=== PATIENT | female | born 1945 | race Caucasian/White ===

== ENCOUNTER 2022-10-17 15:15 | Inpatient (IN) | payer OTHER, MEDICAID ==
[~2022-10-17] VITALS: Ht 162.6 cm; Wt 76.9 kg
[2022-10-17] MEDS ORDERED: NACL 0.9% 1,000 ML IV ONE (15:20)
[2022-10-17 15:21] VITALS: BP 146/74
--- NOTE | 2022-10-17 15:25 | NUR ---
77/F BIBA FROM HOME D/T SZ WITNESSED BY FAMILY. PT HAS A HX BRAIN TUMOR W/ CRANIOTOMY. PT HAND FOCAL SZ X3 TODAY. PT IS NOW POST-ICTAL AFTER 2.5 MG VERSED GIVEN BY EMS EN ROUTE. PER EMS, PT IS ON HOME HOSPICE WITH DNR. AAOX1, PMH: DM, KIDNEY FAILURE, UTERINE CA, BRAIN TUMOR.
--- NOTE | 2022-10-17 15:31 | NUR ---
BLOOD DRAWN BY WAITER/WAITRESS ECONOMY CLASS
[2022-10-17 15:32] LABS: BASOPHILS % (AUTO) 0.3 % (0.0-2.0); HEMOGLOBIN 12.4 g/dL (12.0-16.0); LYMPHOCYTES # (AUTO) 2.6 K/uL (2.5-16.5); LYMPHOCYTES % (AUTO) 16.3 % (20.5-51.1); MONOCYTES # (AUTO) 0.4 K/uL (0.8-1.0); MONOCYTES % (AUTO) 2.4 % (1.7-9.3)
[2022-10-17] MEDS: NACL 0.9% 1,000 ML IV ONE ×2 (15:33→15:41)
[2022-10-17 15:45] LABS: ALBUMIN 2.3 g/dL (3.4-5.0); ANION GAP 31.1 (8-16); ASPARTATE AMINOTRANSFERASE 16 U/L (15-37); CARBON DIOXIDE 16.9 mmol/L (21-32); CHLORIDE 96 mmol/L (98-107); CREATININE 1.4 mg/dL (0.6-1.3); SODIUM SERUM 140 mmol/L (136-145); TOTAL BILIRUBIN 0.5 mg/dL (0.0-1.0); UREA NITROGEN, BLOOD 21 mg/dL (7-18)
[2022-10-17 15:48] LABS: GLUCOSE 477 mg/dL (74-106)
--- NOTE | 2022-10-17 15:57 | NUR ---
PT WENT TO CT
[2022-10-17 16:02] LABS: EOSINOPHILS # (AUTO) 0.1 K/uL (0-0.4); EOSINOPHILS % (AUTO) 0.3 % (0.0-4.0); HEMATOCRIT 39.4 % (36-48); MEAN CORPUSCULAR HEMOGLOBIN 27 pg (27-31); MEAN CORPUSCULAR HGB CONC 31 g/dL (33-37); MEAN CORPUSCULAR VOLUME 86.5 fL (80-94); NEUTROPHILS # (AUTO) 12.8 K/uL (1.8-7.7); NEUTROPHILS % (AUTO) 80.7 % (42.2-75.2); PLATELET COUNT (AUTO) 293 K/uL (140-450); RED BLOOD CELL COUNT(AUTO) 4.55 MIL/uL (4.20-5.40); RED CELL DISTRIBUTION WIDTH 15.9 % (11.6-13.7); WHITE BLOOD COUNT (AUTO) 15.9 K/uL (4.8-10.8)
[2022-10-17] MEDS ORDERED: INSULIN REGULAR, HUMAN 100 UNIT/ML VIAL SUBQ ONE (16:15)
[2022-10-17] MEDS ORDERED: DEXAMETHASONE 10 MG/ML VIAL IVP ONE (16:40)
[2022-10-17] MEDS ORDERED: DEXAMETHASONE 10 MG/ML VIAL ONE (16:43)
--- NOTE | 2022-10-17 16:59 | NUR ---
ATTEMPTED STRAIGHT CATH PER ERMD VERBAL ORDER FOR URINE COLLECTION. UNABLE TO OBTAIN URINE AT THIS TIME. NO URINE DRAINED FROM STRAIGHT CATH. ERMD MADE AWARE.
[2022-10-17] MEDS ORDERED: levETIRAcetam 1,000 MG in NACL 0.9% 100 ML IV ONE (17:30)
[2022-10-17] MEDS ORDERED: PIPERACILLIN/TAZOBACTAM 3.375 GM in DEXTROSE 5% 50 ML IV ONE (17:30)
[2022-10-17] MEDS ORDERED: PIPERACILLIN/TAZOBACTAM 3.375 GM VIAL IV ONE (17:44)
--- NOTE | 2022-10-17 18:14 | NUR ---
RECEIVED CHRISTIANO FROM PHARMACY.
--- NOTE | 2022-10-17 19:30 | NUR ---
ASSUMED CARE OF PT AT THIS TIME. PT IN POSITION OF COMFORT. NO S/S OF DISTRESS NOTED. VSS. AWAITING GAITAN TO DECIDE IF PT WILL BE ADMITTED HERE AT THIS FACILITY OR TRANSFERED. WILL CONTINUE TO MONITOR.
[2022-10-17] MEDS ORDERED: LORazepam 2 MG/ML VIAL IVP PRN (20:50)
--- NOTE | 2022-10-17 21:05 | NUR ---
SPOKE WITH TRIAGE NURSE AT HOSPICE CARE. UPDATED MORE ON PLAN FOR ADMISSION. [phone]
--- NOTE | 2022-10-17 21:15 | NUR ---
BELONGING LIST COMPLETE
--- NOTE | 2022-10-17 21:17 | NUR ---
MED REC COMPLETE
--- NOTE | 2022-10-17 21:20 | NUR ---
PT CLEANED, PT HAS UNSTAGABLE WOUNDS TO COCCYX, RIGHT HIP. AND A POST SURGICAL HEALING WOUND TO HEAD AFTER CRAINIOTOMY IN AUGUST.
[2022-10-17] MEDS ORDERED: guaiFENesin DM 200/20 MG-10 ML 10 ML UDC PO PRN (21:50)
[2022-10-17] MEDS ORDERED: ZOLPIDEM 5 MG TAB PO PRN (21:50)
[2022-10-17] MEDS ORDERED: ACETAMINOPHEN 325 MG TAB PO PRN (21:50)
[2022-10-17] MEDS ORDERED: DOCUSATE SODIUM 100 MG GELCAP PO PRN (21:50)
[2022-10-17] MEDS ORDERED: ONDANSETRON 4 MG/2 ML VIAL IM/IVP PRN (21:50)
[2022-10-17] MEDS ORDERED: PIPERACILLIN/TAZOBACTAM 3.375 GM in DEXTROSE 5% 50 ML IV SCH (21:55)
--- NOTE | 2022-10-17 22:12 | NUR ---
SPOKE TO AFTER HOURS PHARMACIST. SHE GAVE SUGGESTION OF ZOSYN 2.25GM Q 8HR TO START AT 0200. WILL CONTACT ADMITTING DOCTOR.
[2022-10-17 22:18] LABS: PROTHROMBIN TIME 11.1 secs (10.8-13.4)
[2022-10-17 22:19] LABS: CHOL/HDL RATIO 5.8 (1-4.5); FREE T4 (FREE THYROXINE) 1.4 ng/dL (0.76-1.46); MAGNESIUM 1.2 mg/dL (1.8-2.4); PHOSPHORUS 5.2 mg/dL (2.5-4.9); THYROID STIMULATING HORMONE 1.77 uIU/mL (0.34-3.74)
--- NOTE | 2022-10-17 22:34 | NUR ---
Patient will be admitted to care of ROSA ASHLEY. Admited to TELEMETRY. Will go to room 110B. Belongings list completed. Report to LIZ FOURNIER.
--- NOTE | 2022-10-17 22:34 | NUR ---
TEXT DR. CONRAD ABOUT 14.3 LACTIC ACID. NO ORDERS AT THIS TIME.
--- NOTE | 2022-10-17 22:50 | NUR ---
PT WAS RECEIVED IN MAT AT 2245, TRANSPORTED ON A GURNEY FROM THE ER. NOTED PT WAS OBTUNDED, UNABLE TO RESPOND WHEN CALLED BY NAME, WAS ABLE TO WITHDRAW FROM SLIGHT PAIN. PT HAD ON RAC 20G SL, UNSTAGEABLE SACRAL COCCY WOUND, AND SLIGHT SKIN TEAR R HIP. PT CHANGED, MADE COMFORTABLE, VITALS TAKEN WNL, BED IN LOW POSITION, SEIZURE AND FALL PRECAUTIONS IN PLACE.
[2022-10-17] MEDS: DEXT 5% /NACL 0.9% 1,000 ML IV SCH (23:10)
[2022-10-18] MEDS ORDERED: MAG SULF 2000 MG/WATER PREMIX 50 ML IV ONE (03:50)
[2022-10-18 04:22] VITALS: BP 112/70
[2022-10-18] MEDS: DEXT 5% /NACL 0.9% 1,000 ML IV SCH ×4 (04:30→17:59)
[2022-10-18] MEDS ORDERED: PIPERACILLIN/TAZOBACTAM 2.25 GM VIAL IV ONE (05:37)
[2022-10-18] MEDS: PIPERACILLIN/TAZOBACTAM 2.25 GM in DEXTROSE 5% 50 ML IV SCH ×3 (05:48→20:05)
[2022-10-18 07:18] LABS: EOSINOPHILS % (AUTO) 0.1 % (0.0-4.0); HEMATOCRIT 32.1 % (36-48); HEMOGLOBIN 10.4 g/dL (12.0-16.0); LYMPHOCYTES # (AUTO) 1.2 K/uL (2.5-16.5); LYMPHOCYTES % (AUTO) 8.6 % (20.5-51.1); MEAN CORPUSCULAR HEMOGLOBIN 27 pg (27-31); MEAN CORPUSCULAR HGB CONC 32 g/dL (33-37); MEAN CORPUSCULAR VOLUME 83.5 fL (80-94); MONOCYTES # (AUTO) 0.3 K/uL (0.8-1.0); NEUTROPHILS # (AUTO) 12.3 K/uL (1.8-7.7); NEUTROPHILS % (AUTO) 89.3 % (42.2-75.2); PLATELET COUNT (AUTO) 214 K/uL (140-450); RED BLOOD CELL COUNT(AUTO) 3.85 MIL/uL (4.20-5.40); RED CELL DISTRIBUTION WIDTH 15.8 % (11.6-13.7); WHITE BLOOD COUNT (AUTO) 13.8 K/uL (4.8-10.8)
--- NOTE | 2022-10-18 07:33 | NUR ---
GOT REPORT FROM THE NIGHT NURSE, PT NONE VERBAL , NO SOB, IV FLUID IS INFUSING.[id number]
[2022-10-18 08:00] VITALS: BP 150/75
[2022-10-18 08:06] LABS: ANION GAP 16.2 (8-16); CARBON DIOXIDE 23.5 mmol/L (21-32); CHLORIDE 105 mmol/L (98-107); CREATININE 0.7 mg/dL (0.6-1.3); POTASSIUM 3.7 mmol/L (3.5-5.1); SODIUM SERUM 141 mmol/L (136-145); UREA NITROGEN, BLOOD 15 mg/dL (7-18)
[2022-10-18 08:13] LABS: GLUCOSE 420 mg/dL (74-106)
[2022-10-18] MEDS: PANTOPRAZOLE 40 MG TABEC PO SCH (09:24)
[2022-10-18] MEDS: levETIRAcetam 1,000 MG in NACL 0.9% 100 ML IV SCH ×2 (09:24→21:01)
--- NOTE | 2022-10-18 09:50 | NUR ---
WOUND CARE EVALUATION NOTE: SKIN ASSESSMENT DONE WITH THIS 77 Y/O PT ADMITTED WITH INITIAL DX SEIZURES ACTIVITIES. PAST MEDICAL HX INCLUDES HX OF BRAIN TUMOR S/P CRANIOTOMY, DIABETES. PT ADMITTED WITH PRESSURE INJURIES. ALL ABOVE INFORMATION OBTAINED FROM ADMISSION H&P AND CHART REVIEW. PT IS ASLEEP, NOT AROUSABLE WHEN HER NAME IS CALLED OR TOUCHED. PT. SKIN IS WARM AND DRY, BILATERAL LOWER EXTREMITY NO EDEMA. DORSAL PEDAL PULSES PRESENT AND NORMAL. CAPILLARY REFILLED <3 SEC. X 10 TOES. INCONTINENT OF BOWEL AND BLADDER. PLAN OF CARE DISCUSSED WITH PRIMARY RN ДМИТРИЙ. RECOMMENDATIONS DISCUSSED WITH DR. CONRAD. INTEGUMENTARY: -LIPS AND ORAL MUCOSA DRY AND CLEAN. SKIN INTACT. - RIGHT FRONTAL TEMPORAL AND PARTIAL PARIETAL S/P CRANIOTOMY SURGICAL WOUND OLD, HEALED SCARS WITH MULTIPLE STABLE NECROTIC TISSUE AND LARGEST IS 3X3CM IRREGULAR SHAPE -MOISTURE ASSOCIATED SKIN DAMAGE(MASD) TO: B/L GROINS, MEDIAL THIGHS AND PERINEUM. -PRESSURE INJURY UN-STAGEABLE TO SACROCOCCYX 3X5CM, WOUND BED 100% BROWN/WATSON/YELLOW SLOUGH TISSUE, MOIST, MILD ODOR, WOUND EDGE NOT ATTACHED, TASHA-WOUND SKIN MOIST SURROUNDING NON-BLANCHABLE REDNESS INDICATED FURTHER DAMAGE -PRESSURE INJURY STAGE 3 TO RIGHT HIP 1X0.5X0.2CM WOUND BED IS RED 100% GRANULATING TISSUE, MOIST NO ODOR, TASHA WOUND DRYING BLISTERING SKIN WITH NON-BLANCHABLE REDNESS INDICATED FURTHER DAMAGE . RECOMMENDATIONS: -SURGEON CONSULT FOR SACRAL WOUND DEBRIDEMENT -PAINT RIGHT SIDE OF SCALP SURGICAL WOUND WITH BETADINE CHRISTEN. BID AND RISA -APPLY THIN LAYER OF Z GUARD TO R/L GROINS EXTENDED TO PERINEUM BID AND PRN IF SOILING -CLEANSE RIGHT HIP AND SACRAL WOUNDS WITH WOUND CLEANSING SOLUTION, APPLY THERAHONEY GEL TO WOUND BED AND APPLY Z-GUARD TO TASHA-WOUND SKIN, COVER WITH FOAM DRESSING QD AND PRN IF SOILING -POSITIONING: TURN AND REPOSITION PATIENT Q 2H OR SOONER USE PILLOWS TO KEEP BONY PROMINENCES FROM DIRECT CONTACT WITH SURFACES USE REPOSITIONING WEDGES TO PROVIDE 30-DEGREE ANGLE FOR SIDE LYING POSITIONS OFFLOADING OR FOAM DRESSING TO ALL TUBING TO PREVENT MEDICAL DEVICES RELATED PRESSURE INJURY -RE-EVALUATING AND MANAGING INCONTINENCE MONITOR SKIN CONDITION DURING POSITION CHANGE DO NOT MASSAGE REDNESS, BONY PROMINENCES, DO NOT USE DONUT-TYPE DEVICES FREQUENT TASHA-CARE AND PROVIDE BARRIER CREAMS PRN IF SOILING MOISTURE CONTROL BY OFFER BED HENSLEY/URINAL /ABSORBENT PAD TO WICK AND HOLD MOISTURE. KEEP SKIN DRY AND PROTECT FROM FRICTION -MANAGE FRICTION/SHEAR/MOBILITY KEEP HOB AT THE LOWEST LEVEL OF ELEVATION NO MORE THAN 30 DEGREES UNLESS OTHERWISE CONTRAINDICATED USE LIFT SHEET OR TRANSFER DEVICE TO MOVE PATIENT AND PREVENT LATERAL SHEER. CONSIDER TRAPEZE IF APPROPRIATE PROTECT HEELS, ELBOWS BONY PROMINENCES WITH SKIN BERRIES OR FOAM DRESSING IF EXPOSED TO FRICTION OFFLOAD BILATERAL HEELS BY PLACING PILLOWS UNDER CALVES AT ALL TIMES, UNLESS OTHERWISE CONTRAINDICATED -PRESSURE REDISTRIBUTION SURFACE THERAPY ANGÉLICA ISOFLEX ROLANDO MATTRESS -NUTRITION: PLEASE FOLLOW RD RECOMMENDATIONS AND OFFER NUTRITION SUPPLEMENTS IF ORDERED. PLEASE CONTACT WOUND CARE NURSE FOR ANY QUESTION AND CHANGE OF WOUND CONDITION.
--- NOTE | 2022-10-18 10:52 | NUR ---
PATIENT HAS BEEN SCREENED AND CATEGORIZED HIGH NUTRITION RISK. PATIENT WILL BE SEEN WITHIN 1-2 DAYS OF ADMISSION. 10/18/2212/17/[address]
[2022-10-18 12:00] VITALS: BP 144/68
--- NOTE | 2022-10-18 12:00 | NUR ---
STRAIT CATH AND SEND OFF THE URINE TO THE LAB, PT CONTINUE TO SLEEP SLIGHT MOVEMENT OF THE RIGHT ARRM.[id number]
[2022-10-18] MEDS: THERAHONEY GEL 42.5 GM TP SCH (13:00)
[2022-10-18] MEDS: GAUZE TP SCH (13:00)
[2022-10-18] MEDS: Z-GUARD PASTE TP SCH (13:00)
[2022-10-18 14:24] LABS: APPEARANCE,URINE SL CLOUDY (CLEAR); BILIRUBIN,URINE NEGATIVE (NEGATIVE); BLOOD, URINE 1+ (NEGATIVE); COLOR,URINE AMBER (YELLOW); LEUKOCYTE ESTERASE ,URINE 2+ (NEGATIVE); NITRITE, URINE POSITIVE (NEGATIVE); PH,URINE 5.5 (5.0-9.0); UGLUCOSE 3+ (NEGATIVE)
[2022-10-18 14:42] LABS: OTHER CASTS, URINE None Seen /LPF (None Seen)
--- NOTE | 2022-10-18 14:49 | NUR ---
10/18/22 RD INITIAL ASSESSMENT COMPLETED PLEASE REFER TO NUTRITION ASSESSMENT UNDER CARE ACTIVITY FOR ESTIMATED NUTRITIONAL NEEDS. 1. RECOMMEND [id number] MECHANICAL SOFT DIET TOLERATED 2. RECOMMEND GLUCERNA 1XDAY AND HEBER BID PER RX PROTOCOL FOR WOUNDS 3. MONITOR PO INTAKE AND NUTRITION-RELATED LAB VALUES 4. RD TO FOLLOW-UP 3-5 DAYS, MODERATE RISK PIYUSH MARTINEZ RD
--- NOTE | 2022-10-18 15:51 | NUR ---
PT DRESSING DONE AGAIN C\O THE SURGENT TOOK IT OFF. DRESSED WITH HONEY GEL ORDERED IN SACRAL- COCCYGEAL AREA.[email or web address]
[2022-10-18 16:00] VITALS: BP 152/70
--- NOTE | 2022-10-18 16:56 | NUR ---
CONSENT OBTAINED FROM THE SON,JABARI
--- NOTE | 2022-10-18 18:09 | NUR ---
RT ASSESSED PT SPO2 ON ROOM AIR NURSE STATED PT HAS BEEN ON 2L NC ALL DAY WHEN RT ASSESSED PT WAS 96% ON ROOM AFTER 6 MINUTES. WILL CONTINUE TO MONITOR
--- NOTE | 2022-10-18 19:10 | NUR ---
RECEIVED BEDSIDE REPORT FROM DAY SHIFT IRLANDA EDDY FOR CONTINUITY OF CARE. PT IS AROUSABLE TO TOUCH AND VOICE. PT IS WELSH SPEAKER. PT IS AAOX1 TO NAME. PT HAS RIGHT AC 20 GAUGE RUNNING D5 NS 150 CC/HR. PT IS RESTING IN BED WITH NO DISTRESS. PT IS INCONTINENT WITH DIAPER ON. PT HAS BILATERAL HEEL PROTECTORS ON. NO COMPLAINS. SAFETY PRECAUTIONS TAKEN. SEIZURE PRECAUTIONS IN PLACE. WILL CONTINUE TO MONITOR THE PT.
[2022-10-18 20:00] VITALS: BP 126/73
--- NOTE | 2022-10-18 20:05 | NUR ---
SCHEDULE MEDICATIONS GIVEN. NO ADVERSE REACTION NOTED. WILL CONTINUE TO MONITOR THE PT.
--- NOTE | 2022-10-18 21:01 | NUR ---
SCHEDULE KEPPRA GIVEN. NO ADVERSE REACTION NOTED. WILL CONTINUE TO MONITOR THE PT.
[2022-10-18] MEDS ORDERED: DEXTROSE 50% 50 ML SYR IVP PRN (21:55)
[2022-10-19] VITALS: BP 120/45
[2022-10-19] MEDS: DEXT 5% /NACL 0.9% 1,000 ML IV SCH ×4 (00:56→18:44)
--- NOTE | 2022-10-19 00:56 | NUR ---
IVF CHANGED. PT IS SLEEPING COMFORTABLY IN BED. PT NOT IN ANY ACUTE DISTRESS. WILL CONTINUE TO MONITOR THE PT.
[2022-10-19] MEDS: Z-GUARD PASTE TP SCH ×2 (01:10→13:00)
--- NOTE | 2022-10-19 02:20 | NUR ---
OBSERVED PT. PT IS SLEEPING COMFORTABLY IN BED. PT NOT IN ANY ACUTE DISTRESS. VISIBLE RISE AND CHEST FALL. SAFETY PRECAUTIONS TAKEN. WILL CONTINUE TO MONITOR THE PT.
[2022-10-19 04:00] VITALS: BP 126/38
[2022-10-19] MEDS: PIPERACILLIN/TAZOBACTAM 2.25 GM in DEXTROSE 5% 50 ML IV SCH ×3 (04:15→20:21)
--- NOTE | 2022-10-19 04:15 | NUR ---
SCHEDULE MEDICATION GIVEN. NO ADVERSE REACTION NOTED. WILL CONTINUE TO MONITOR THE PT.
[2022-10-19] MEDS: BLOOD GLUCOSE MONITORING 1 DEV DEV FS SCH ×6 (06:30→20:24)
--- NOTE | 2022-10-19 06:31 | NUR ---
PT BLOOD GLUCOSE IS 429. DR. FABIAN MADE AWARE. ORDERED TO GIVE 20 UNITS OF HUMALOG.
[2022-10-19] MEDS: INSULIN LISPRO SLIDING SCALE 100 UNITS/ML VIAL SUBQ PRN ×4 (06:32→20:24)
[2022-10-19 06:42] LABS: ANION GAP 15.5 (8-16); CARBON DIOXIDE 23.9 mmol/L (21-32); CHLORIDE 107 mmol/L (98-107); CREATININE 0.7 mg/dL (0.6-1.3); POTASSIUM 3.4 mmol/L (3.5-5.1); SODIUM SERUM 143 mmol/L (136-145); UREA NITROGEN, BLOOD 13 mg/dL (7-18)
[2022-10-19 06:44] LABS: GLUCOSE 441 mg/dL (74-106)
[2022-10-19 06:57] LABS: BASOPHILS % (AUTO) 0.2 % (0.0-2.0); EOSINOPHILS % (AUTO) 0.1 % (0.0-4.0); HEMATOCRIT 33.7 % (36-48); HEMOGLOBIN 10.6 g/dL (12.0-16.0); LYMPHOCYTES # (AUTO) 1.9 K/uL (2.5-16.5); LYMPHOCYTES % (AUTO) 12.4 % (20.5-51.1); MEAN CORPUSCULAR HEMOGLOBIN 27 pg (27-31); MEAN CORPUSCULAR HGB CONC 32 g/dL (33-37); MEAN CORPUSCULAR VOLUME 85.3 fL (80-94); MONOCYTES # (AUTO) 0.7 K/uL (0.8-1.0); MONOCYTES % (AUTO) 4.5 % (1.7-9.3); NEUTROPHILS # (AUTO) 12.6 K/uL (1.8-7.7); NEUTROPHILS % (AUTO) 82.8 % (42.2-75.2); PLATELET COUNT (AUTO) 170 K/uL (140-450); RED BLOOD CELL COUNT(AUTO) 3.95 MIL/uL (4.20-5.40); RED CELL DISTRIBUTION WIDTH 15.7 % (11.6-13.7); WHITE BLOOD COUNT (AUTO) 15.3 K/uL (4.8-10.8)
--- NOTE | 2022-10-19 07:15 | NUR ---
RECEIVED BEDSIDE REPORT FROM FOOD AND BEVERAGE CONTROLLER MYA RN. PT LETHARGIC. BEDREST. ROOM AIR. [facility] [place] DIET. IV TO RT AC 20G, RUNNING D5 NS @ 150MLS/HR. BEDREST, BED TO LOWEST POSITION, CALL LIGHT WITHIN REACH, WILL CONTINUE TO MONITOR. SEE WOUND ASSESSMENT.
--- NOTE | 2022-10-19 07:35 | NUR ---
ENDORSED PT TO DAY SHIFT RN FOR CONTINUITY OF CARE. PT IS STABLE.
[2022-10-19 08:00] VITALS: BP 134/58
[2022-10-19 08:07] LABS: T4 (THYROXINE) 8.2 ug/dL (4.5-12.0)
[2022-10-19] MEDS: PANTOPRAZOLE 40 MG TABEC PO SCH (09:37)
[2022-10-19] MEDS: levETIRAcetam 1,000 MG in NACL 0.9% 100 ML IV SCH ×2 (09:38→21:21)
[2022-10-19 12:00] VITALS: BP 135/57
[2022-10-19] MEDS: POTASSIUM CHLORIDE 10 MEQ TABER PO PRN (12:03)
[2022-10-19] MEDS ORDERED: diphenhydrAMINE 50 MG/ML VIAL IVP PRN (12:50)
[2022-10-19] MEDS ORDERED: MEPERIDINE 25 MG/ML SYR IVP PRN (12:50)
[2022-10-19] MEDS ORDERED: ONDANSETRON 4 MG/2 ML VIAL IVP PRN (12:50)
[2022-10-19] MEDS ORDERED: HYDROmorphone 1 MG/ML AMP IVP PRN (12:50)
[2022-10-19] MEDS ORDERED: fentaNYL citrate 0.05 MG/ML VIAL ONE (12:59)
[2022-10-19] MEDS ORDERED: PROPOFOL 200 MG/20 ML VIAL IV ONE ×2 (12:59→13:00)
[2022-10-19] MEDS: GAUZE TP SCH (13:00)
[2022-10-19] MEDS ORDERED: SEVOFLURANE 250 ML BTL INH ONE (13:00)
[2022-10-19] MEDS: THERAHONEY GEL 42.5 GM TP SCH (13:00)
[2022-10-19] MEDS ORDERED: fentaNYL citrate 0.05 MG/ML - 50mL vial IV ONE (13:00)
[2022-10-19] MEDS ORDERED: BUPIVACAINE-MPF 0.25% 30 ML VIAL INJ ONE (13:08)
--- NOTE | 2022-10-19 14:36 | NUR ---
PT BACK FROM DEBRIDEMENT. TOLERATED WELL. FAMILY AT BEDSIDE.
[2022-10-19 16:00] VITALS: BP 129/55
--- NOTE | 2022-10-19 16:58 | NUR ---
RECEIVED FAMILY CALL. UPDATED PT INFORMATION.
--- NOTE | 2022-10-19 19:21 | NUR ---
ENDORSED TO CRAFT SUPERINTENDENT RN FOR CONTINUITY OF CARE.
--- NOTE | 2022-10-19 19:25 | NUR ---
RECEIVED BEDSIDE REPORT FROM DAY SHIFT RN FOR CONTINUITY OF CARE. PT IS AROUSABLE TO TOUCH AND VOICE. PT IS [place] SPEAKER. PT IS AAOX1 TO NAME. PT HAS RIGHT AC 20 GAUGE RUNNING NS 150 CC/HR. PT IS RESTING IN BED WITH NO DISTRESS. PT IS INCONTINENT TO BOWEL AND BLADDER. S/P DEBRIDEMENT OF SACRAL AND RIGHT SIDE PARIETAL SCALP. PT HAS BILATERAL HEEL PROTECTORS ON. NO COMPLAINS. SAFETY PRECAUTIONS TAKEN. SEIZURE PRECAUTIONS IN PLACE. WILL CONTINUE TO MONITOR THE PT.
[2022-10-19 20:00] VITALS: BP 155/76
[2022-10-19] MEDS: NACL 0.9% 1,000 ML IV SCH ×2 (20:22→21:10)
--- NOTE | 2022-10-19 21:21 | NUR ---
SCHEDULE MEDICATIONS GIVEN. NO ADVERSE REACTION NOTED. WILL CONTINUE TO MONITOR THE PT.
[2022-10-20] VITALS: BP 153/60
--- NOTE | 2022-10-20 | NUR ---
VITAL SIGNS TAKEN. AND STABLE. PT NO TIN ANY DISTRESS. SAFETY PRECAUTIONS TAKEN. WILL CONTINUE TO MONITOR THE PT.
[2022-10-20] MEDS: Z-GUARD PASTE TP SCH ×2 (01:39→13:06)
--- NOTE | 2022-10-20 02:40 | NUR ---
OBSERVED PT. PT SLEEPING COMFORTABLY IN BED. PT NOT IN ANY RESPIRATORY DISTRESS. SAFETY PRECAUTIONS TAKEN. WILL CONTINUE TO MONITOR THE PT.
[2022-10-20] MEDS: DEXT 5% /NACL 0.9% 1,000 ML IV SCH ×4 (03:10→23:10)
[2022-10-20 04:00] VITALS: BP 150/60
--- NOTE | 2022-10-20 04:50 | NUR ---
PT WAS CLEANED AND CHANGED. TOLERATED IT WELL. SAFETY PRECAUTIONS TAKEN. WILL CONTINUE TO MONITOR THE PT.
[2022-10-20] MEDS: PIPERACILLIN/TAZOBACTAM 2.25 GM in DEXTROSE 5% 50 ML IV SCH ×3 (05:44→20:05)
[2022-10-20] MEDS: NACL 0.9% 1,000 ML IV SCH ×3 (05:44→22:10)
[2022-10-20] MEDS: INSULIN LISPRO SLIDING SCALE 100 UNITS/ML VIAL SUBQ PRN ×3 (06:32→20:21)
[2022-10-20] MEDS: BLOOD GLUCOSE MONITORING 1 DEV DEV FS SCH ×4 (06:33→20:21)
[2022-10-20 07:12] LABS: BASOPHILS % (AUTO) 0.1 % (0.0-2.0); EOSINOPHILS % (AUTO) 0.2 % (0.0-4.0); HEMATOCRIT 31.7 % (36-48); HEMOGLOBIN 10.3 g/dL (12.0-16.0); LYMPHOCYTES # (AUTO) 2.1 K/uL (2.5-16.5); LYMPHOCYTES % (AUTO) 13.4 % (20.5-51.1); MEAN CORPUSCULAR HEMOGLOBIN 27 pg (27-31); MEAN CORPUSCULAR HGB CONC 33 g/dL (33-37); MEAN CORPUSCULAR VOLUME 84.4 fL (80-94); MONOCYTES # (AUTO) 0.7 K/uL (0.8-1.0); MONOCYTES % (AUTO) 4.8 % (1.7-9.3); NEUTROPHILS # (AUTO) 12.6 K/uL (1.8-7.7); NEUTROPHILS % (AUTO) 81.5 % (42.2-75.2); PLATELET COUNT (AUTO) 185 K/uL (140-450); RED BLOOD CELL COUNT(AUTO) 3.76 MIL/uL (4.20-5.40); RED CELL DISTRIBUTION WIDTH 15.8 % (11.6-13.7); WHITE BLOOD COUNT (AUTO) 15.5 K/uL (4.8-10.8)
--- NOTE | 2022-10-20 07:22 | NUR ---
ENDORSED PT TO DAY SHIFT IRLANDA LU FOR CONTINUITY OF CARE. PT IS STABLE.
[2022-10-20 07:45] LABS: CARBON DIOXIDE 21.4 mmol/L (21-32); CHLORIDE 110 mmol/L (98-107); CREATININE 0.8 mg/dL (0.6-1.3); GLUCOSE 250 mg/dL (74-106); POTASSIUM 3.4 mmol/L (3.5-5.1); SODIUM SERUM 146 mmol/L (136-145); UREA NITROGEN, BLOOD 9 mg/dL (7-18)
[2022-10-20 08:00] VITALS: BP 143/71
[2022-10-20] MEDS: levETIRAcetam 1,000 MG in NACL 0.9% 100 ML IV SCH ×2 (09:29→20:43)
[2022-10-20] MEDS: PANTOPRAZOLE 40 MG TABEC PO SCH (09:30)
[2022-10-20] MEDS: POTASSIUM CHLORIDE 10 MEQ TABER PO PRN (09:30)
[2022-10-20 12:00] VITALS: BP 147/68
[2022-10-20] MEDS: GAUZE TP SCH (12:28)
[2022-10-20] MEDS: THERAHONEY GEL 42.5 GM TP SCH (12:28)
[2022-10-20 16:00] VITALS: BP 144/68
--- NOTE | 2022-10-20 19:14 | NUR ---
ENDORSE PATIENT TO PM SHIFT NURSE WHILE PATIENT IS SLEEPING, PIV RAC 20G INFUSING NS @120ML/HR, PATIENT IS ON ROOM AIR, COCCYX WOUND DRESSING CHANGED
--- NOTE | 2022-10-20 19:15 | NUR ---
RECEIVED BEDSIDE REPORT FROM DAY SHIFT RN FOR CONTINUITY OF CARE. PT IS AROUSABLE TO TOUCH AND VOICE. PT IS [place] SPEAKER. PT IS AAOX1 TO NAME. PT HAS RIGHT AC 20 GAUGE RUNNING NS 150 CC/HR. PT IS RESTING IN BED WITH NO DISTRESS. PT IS INCONTINENT TO BOWEL AND BLADDER. S/P DEBRIDEMENT OF SACRAL AND RIGHT SIDE PARIETAL SCALP 10/19/22. PT HAS BILATERAL HEEL PROTECTORS ON. NO COMPLAINS. SAFETY PRECAUTIONS TAKEN. SEIZURE PRECAUTIONS IN PLACE. WILL CONTINUE TO MONITOR THE PT.
[2022-10-20 20:00] VITALS: BP 146/69
--- NOTE | 2022-10-20 20:45 | NUR ---
SCHEDULE MEDICATIONS GIVEN. NO ADVERSE REACTION NOTED. WILL CONTINUE TO MONITOR THE PT.
[2022-10-21] VITALS: BP 167/62
[2022-10-21] MEDS: hydrALAZINE 20 MG/ML VIAL IVP PRN (00:50)
--- NOTE | 2022-10-21 00:53 | NUR ---
PT BP WAS HIGH 167/62 WITH HR OF 106. HYDRALAZINE GIVEN PER MD ORDER. WILL REASSESS PT IN 1 HOUR.
[2022-10-21] MEDS: Z-GUARD PASTE TP SCH ×2 (01:08→12:41)
--- NOTE | 2022-10-21 02:35 | NUR ---
OBSERVED PT. PT SLEEPING COMFORTABLY IN BED. PT NOT IN ANY RESPIRATORY DISTRESS. SAFETY PRECAUTIONS TAKEN. WILL CONTINUE TO MONITOR THE PT.
[2022-10-21] MEDS: NACL 0.9% 1,000 ML IV SCH (03:15)
[2022-10-21 04:00] VITALS: BP 154/77
[2022-10-21] MEDS: PIPERACILLIN/TAZOBACTAM 2.25 GM in DEXTROSE 5% 50 ML IV SCH ×2 (04:05→12:38)
--- NOTE | 2022-10-21 04:50 | NUR ---
PT WAS CLEANED AND CHANGED. PT TOLERATED IT WELL. DRESSING CHANGED. WILL CONTINUE TO MONITOR THE PT.
[2022-10-21] MEDS: DEXT 5% /NACL 0.9% 1,000 ML IV SCH (05:50)
[2022-10-21 07:20] LABS: ANION GAP 17.2 (8-16); CARBON DIOXIDE 16.7 mmol/L (21-32); CHLORIDE 110 mmol/L (98-107); CREATININE 0.8 mg/dL (0.6-1.3); GLUCOSE 288 mg/dL (74-106); POTASSIUM 3.9 mmol/L (3.5-5.1); SODIUM SERUM 140 mmol/L (136-145); UREA NITROGEN, BLOOD 8 mg/dL (7-18)
--- NOTE | 2022-10-21 07:21 | NUR ---
ENDORSED PT TO DAY SHIFT IRLANDA LU FOR CONTINUITY OF CARE. PT IS STABLE.
[2022-10-21 07:22] LABS: BASOPHILS % (AUTO) 0.1 % (0.0-2.0); EOSINOPHILS % (AUTO) 0.2 % (0.0-4.0); HEMATOCRIT 30.1 % (36-48); HEMOGLOBIN 9.8 g/dL (12.0-16.0); LYMPHOCYTES # (AUTO) 1.9 K/uL (2.5-16.5); LYMPHOCYTES % (AUTO) 12.4 % (20.5-51.1); MEAN CORPUSCULAR HEMOGLOBIN 27 pg (27-31); MEAN CORPUSCULAR HGB CONC 33 g/dL (33-37); MEAN CORPUSCULAR VOLUME 83.4 fL (80-94); MONOCYTES # (AUTO) 0.6 K/uL (0.8-1.0); MONOCYTES % (AUTO) 3.9 % (1.7-9.3); NEUTROPHILS # (AUTO) 12.9 K/uL (1.8-7.7); NEUTROPHILS % (AUTO) 83.4 % (42.2-75.2); PLATELET COUNT (AUTO) 210 K/uL (140-450); RED BLOOD CELL COUNT(AUTO) 3.61 MIL/uL (4.20-5.40); RED CELL DISTRIBUTION WIDTH 16.2 % (11.6-13.7); WHITE BLOOD COUNT (AUTO) 15.4 K/uL (4.8-10.8)
[2022-10-21 08:00] VITALS: BP 115/51
--- NOTE | 2022-10-21 08:09 | NUR ---
DC PLANNING LATE ENTRY, JOSIAH INFO GATHERED 10/18 AT 1PM SW OUTREACHED TO PTS SON, ZEV SIMMONS, TO GATHER COLLATERAL INFORMATION. PT IS REPORTED TO RESIDE IN A SINGLE STORY HOME WITH HER SON AND FAMILY, AT THE ADDRESS LISTED ON FILE. ZEV IDENTIFIES HIMSELF, AND FERNANDA SIMMONS, SON, EMERGENCY CONTACTS. ZEV DENIES KNOWLEDGE OF DPOA AND REPORTS THAT IN THE EVENT PT IS UNABLE TO MAKE DECISIONS ON HER OWN FAMILY WOULD COME TOGETHER PTS MDM. ZEV REPORTS PTS LAST VISIT WITH PCP, AUG 24. PT IS REPORTED TO COMPLIANT WITH MEDICATIONS. ZEV REPORTS MEDICATIONS ARE TYPICALLY CRUSHED AND PROVIDED TO PT UTILIZING YOGURT/APPLESAUCE. PTS MEDICATIONS ARE REPORTED TO BE SHIPPED TO THE HOME. PT IS PRIMARILY BED BOUND AND REQUIRES TOTAL CARE THAT FAMILY AIDS WITH. PT IS REPORTED TO BE VERBAL AT BASELINE AND IS ABLE TO MAKE NEEDS KNOWN. ZEV REPORTS PT IS IN ON HOSPICE CARE WITH [facility], SINCE SEP 24. ZEV REPORTS DC PLAN IS FOR PT TO RETURN HOME ON HOSPICE. ZEV REPORTS HE IS UNHAPPY WITH CURRENT HOSPICE PROVIDER AND IS LOOKING TO POSSIBLY CHANGE PROVIDERS. Addendum: 10/21/22 at 0812 by Claire LOWRY Amended: Links added.
[2022-10-21] MEDS: BLOOD GLUCOSE MONITORING 1 DEV DEV FS SCH ×4 (08:21→21:36)
[2022-10-21] MEDS: INSULIN LISPRO SLIDING SCALE 100 UNITS/ML VIAL SUBQ PRN ×3 (08:32→21:48)
[2022-10-21] MEDS: PANTOPRAZOLE 40 MG TABEC PO SCH (10:17)
[2022-10-21] MEDS: levETIRAcetam 1,000 MG in NACL 0.9% 100 ML IV SCH (10:19)
[2022-10-21] MEDS: GAUZE TP SCH (12:39)
[2022-10-21] MEDS: THERAHONEY GEL 42.5 GM TP SCH (12:40)
[2022-10-21] MEDS: HYDROcodone/APAP 7.5/325 MG 1 TAB PO PRN (15:14)
[2022-10-21 16:00] VITALS: BP 138/63
--- NOTE | 2022-10-21 19:29 | NUR ---
ENDORSE PATIENT TO PM SHIFT NURSE WHILE PATIENT IS SLEEPING, PIV RAC 20G INFUSING NS @120ML/HR, PATIENT IS ON ROOM AIR, MED/SURG, COCCYX WOUND & R. HIP SITE DRESSING CHANGED
--- NOTE | 2022-10-21 19:30 | NUR ---
RECEIVED ENDORSEMENT FROM ALY FOURNIER, PATIENT WAS STABLE DURING SHIFT REPORT. PATIENT ASLEEP WITH NOTED DRESSING TO HEAD. NO ORDERS ON HOW TO CHANGE WILL INFORM MD FOR POSSIBLE ORDERS. IT WAS REPORTED PATIENT IS NON VERBAL. NO NOTED RESPIRATORY DISTRESS. NO NOTED S/S OF PAIN/DISCOMFORT. SIDE RAILS UP X 4 FOR SAFETY. NURSING WILL FREQUENT THIS ROOM FOR ANTICIPATED NEEDS. CALL LIGHT WITHIN REACH. PATIENT IS UNAWARE OF HER NURSE FOR THE EVENING. [email or web address]
--- NOTE | 2022-10-21 22:57 | NUR ---
PATIENT REMAINS IN BED WITH WARM BLANKET. PATIENT WOKE UP FOR EVENING MEDICATION PASS. NO NOTED PAIN/DISCOMFORT. PATIENT WAS GIVEN INSULIN COVERAGE. PATIENT REFUSES TO EAT. NURSING WILL CONTINUE TO MONITOR OF S/S OF HYPER/HYPOGLYCEMIA. [email or web address]
[2022-10-22] MEDS: Z-GUARD PASTE TP SCH ×2 (01:36→13:00)
[2022-10-22] MEDS: levETIRAcetam 1,000 MG in NACL 0.9% 100 ML IV SCH ×3 (02:12→20:05)
[2022-10-22] MEDS: PIPERACILLIN/TAZOBACTAM 2.25 GM in DEXTROSE 5% 50 ML IV SCH ×4 (02:14→20:05)
--- NOTE | 2022-10-22 02:24 | NUR ---
PATIENT NOTED IN BED ASLEEP. NURSING NOTED PATIENT IS MAKING FACIAL GESTURE WHILE SLEEPING. NURSING WILL INFORM AM SHIFT OF THE FINDING. NO NOTED INCIDENT AT THIS TIME. [email or web address]
[2022-10-22 04:00] VITALS: BP 165/53
--- NOTE | 2022-10-22 05:43 | NUR ---
IT WILL BE ENDORSED TO DAY SHIFT, THAT PATIENT HAS A SKIN TEAR FROM TAPE ON HER RIGHT FORE ARM. DRESSING WAS APPLIED. PICTURE TAKEN IN THE CHART. [email or web address]
--- NOTE | 2022-10-22 06:20 | NUR ---
IV LINE IS OUT MULTIPLE ATTEMPTS TO REINSERT BUT TO NO AVAIL. WAS NOTIFIED OF NO IV ACCESS AND ELEVATED BLOOD SUGAR WITH NORMAL SALINE HER ONLY MEANS FOR HYDRATION. [email or web address]
[2022-10-22] MEDS: BLOOD GLUCOSE MONITORING 1 DEV DEV FS SCH ×4 (06:43→20:05)
[2022-10-22] MEDS: INSULIN LISPRO SLIDING SCALE 100 UNITS/ML VIAL SUBQ PRN ×3 (06:45→20:04)
--- NOTE | 2022-10-22 06:55 | NUR ---
ENDORSED PATIENT TO WILBERT RN, PATIENT WAS STABLE DURING SHIFT REPORT. ENDORSED TO NURSE WANTS IV REINSERTED AND RESUME MEDICATION THERAPY AND SKIN TEAR FROM MEDICAL TAPE. [email or web address]
--- NOTE | 2022-10-22 07:10 | NUR ---
RECEIVED PT FROM NIGHT RN, PT IS ASLEEP AND LYING ON THE BED WITH SIDE RAILS UP AND CALL LIGHT WITHIN REACH, PT IS ON SEIZURE PRECAUTION, ON ROOM AIR, VISIBLE CHEST RISE AND FALL, RESPIRATION IS EVEN , NO IV LINE IN PLACE DUE TO BEING A HARD STICK, BILATERAL UPPER EXTREMITIES EDEMATOUS AND BRUISING NOTED, NO SIGN OF DISTRESS NOTED AND WILL CONTINUE TO MONITOR PT.
[2022-10-22 07:24] LABS: BASOPHILS % (AUTO) 0.3 % (0.0-2.0); EOSINOPHILS # (AUTO) 0.2 K/uL (0-0.4); EOSINOPHILS % (AUTO) 1.1 % (0.0-4.0); HEMOGLOBIN 10.2 g/dL (12.0-16.0); LYMPHOCYTES # (AUTO) 2.7 K/uL (2.5-16.5); LYMPHOCYTES % (AUTO) 18.6 % (20.5-51.1); MEAN CORPUSCULAR HEMOGLOBIN 28 pg (27-31); MEAN CORPUSCULAR HGB CONC 33 g/dL (33-37); MEAN CORPUSCULAR VOLUME 84.3 fL (80-94); MONOCYTES # (AUTO) 0.7 K/uL (0.8-1.0); NEUTROPHILS # (AUTO) 10.7 K/uL (1.8-7.7); PLATELET COUNT (AUTO) 217 K/uL (140-450); RED BLOOD CELL COUNT(AUTO) 3.68 MIL/uL (4.20-5.40); RED CELL DISTRIBUTION WIDTH 16.6 % (11.6-13.7); WHITE BLOOD COUNT (AUTO) 14.3 K/uL (4.8-10.8)
[2022-10-22 08:00] VITALS: BP 146/71
[2022-10-22 08:20] LABS: ANION GAP 17.3 (8-16); CHLORIDE 111 mmol/L (98-107); CREATININE 0.8 mg/dL (0.6-1.3); GLUCOSE 227 mg/dL (74-106); POTASSIUM 3.3 mmol/L (3.5-5.1); SODIUM SERUM 146 mmol/L (136-145); UREA NITROGEN, BLOOD 14 mg/dL (7-18)
[2022-10-22] MEDS: PANTOPRAZOLE 40 MG TABEC PO SCH (09:00)
--- NOTE | 2022-10-22 10:15 | NUR ---
DR. CONRAD WAS NOTIFIED THAT PT IS A HARD STICK AND CANNOT INSERT AN IV, ASK MD IF A MIDLINE CAN BE INSERTED BUT DR. CONRAD SAID THAT PT WILL BE DISCHARGE TO HOME WITH HOSPICE AND IF AN IV CANNOT BE INSERTED THEN JUST LEAVE IT
--- NOTE | 2022-10-22 11:02 | NUR ---
LAWNMOWER REPAIR MECHANIC TRIED SEVERAL TIMES TO RE-INSERT AND IV LINE BUT WAS UNSUCCESSFUL, PT IS A VERY HARD STICK.
--- NOTE | 2022-10-22 11:17 | NUR ---
SCHEDULED AM IV AND ORAL MEDICATIONS ARE NOT GIVEN YET DUE TOP PT IS A HARD STICK, NO IV LINE AND UNABLE TO TOLERATE PO INTAKE
[2022-10-22] MEDS ORDERED: ROC2I IJ (11:46)
[2022-10-22] MEDS ORDERED: LEVE1000 PO (11:46)
[2022-10-22] MEDS: THERAHONEY GEL 42.5 GM TP SCH (13:00)
[2022-10-22] MEDS: GAUZE TP SCH (13:00)
[2022-10-22 16:00] VITALS: BP 153/68
--- NOTE | 2022-10-22 16:00 | NUR ---
PT WAS CLEANED AND REPOSITIONED NOW.
--- NOTE | 2022-10-22 16:43 | NUR ---
DC PLANNING: CALLED [facility] SPOKE WITH CASE 911 OPERATOR JULISSA STATED PT CAN USE ANY HOSPICE. PATIENT WAS WITH [facility] PRIOR TO HOSPITAL ADMISSION AND PER SON LATHA AGREED TO CONTINUE WITH HOSPICE. [facility]CE THEY DIS[facility]GE PATIENT THEY HAVE TO COME AND EVALUATE PATIENT. CM TO FOLLOW Addendum: 10/24/22 at 1612 by Julianna Gill RN DC PLANNING: CALLED [facility] SPOKE WITH LIZZETH STATED SOME ONE WILL CALL US BACK. NO ONE CALLED BACK FROM [facility]. RECEIVED A CALL FROM PT'S SON SPOKE WITH LATHA STATED HE REVOKED THE HOSPICE AND FAMILY REQUESTING EVERYTHING TO BE CONTINUED. NOTIFIED DR CONRAD. CM TO FOLLOW Addendum: 10/25/22 at 1227 by Julianna Gill RN DC PLANNING: [facility] SPOKE WITH VIJAYA CASE 911 OPERATOR, UPDATED PT'S CLINICAL AND FAXED STABLE FOR TRANSFER. CM TO FOLLOW Addendum: 10/30/22 at 1315 by Julianna Gill RN DC PLANNING: RECEIVED A CALL FROM [facility] CASE 911 OPERATOR UPDATED HER PT CLINICAL. STATED WILL WORK ON IT AND CALL BACK. CM TO FOLLOW Addendum: 10/30/22 at 1422 by Gloria Hanley CM RECEIVED A CALL FROM LONG FROM [facility] [phone], PATIENT 911 OPERATOR, REQUESTING TO CALL THE SON IF WHICH [facility] THEY PREFER [facility] OR [facility]. CONTACTED PATIENT'S SON ZEV SIMMONS AT [phone]. VERONICA BROTHERS HE PREFERS [facility]. [facility] OF [facility] MADE AWARE. PER LONG, HE WILL REQUEST BED AT [facility]. Addendum: 10/30/22 at 1742 by Gloria Hanley RECEIVED A CALL FROM PATIENT'S SON ZEV SIMMONS, REQUESTING HOSPICE INFORMATION. PER ZEV, HE DOES NOT WANT TO CONTINUE WITH [facility] ANYMORE. INFORMED ZEV THAT THIS CM WILL REACH OUT TO [facility] FIRST SINCE [facility] HAS THEIR OWN HOSPICE COMPANY. ZEV ABLE TO VERBALIZE UNDERSTANDING. PER LONG OF [facility], SINCE THIS PATIENT IS CARVED OUT TO MEDICARE REFERRAL CAN BE SEND TO ANY HOSPICE AGENCY THAT CAN ACCEPT MEDICARE. RECEIVED A CALL FROM CARMELITA, ASKING INFO ABOUT THE PATIENT. INFORMED JESSIKA, THAT SHE CAN CONTACT THE PATIENT'S SON FOR MORE INFORMATION. PATIENT'S SON ZEV INFORMED WHAT [facility] TOLD THIS CM. THIS CM ASK ZEV IF HE HAS ANY PREFERENCE FOR HOSPICE. ZEV STATED THAT HE WANTS SNF WITH HOSPICE., [place], [facility]. INFORMED ZEV THAT THIS DYNAMIC BALANCER WILL SEND REFERRAL TO HOSPICE AGENCIES AND THEY WILL BE CALLING HIM TO PROVIDE MORE INFORMATION REGARDING HOSPICE SERVICES THEY OFFER. ZEV AGREED AND ABLE TO VERBALIZED UNDERSTANDING. REFERRAL SEND TO [facility]. WILL FOLLOW UP.
--- NOTE | 2022-10-22 19:15 | NUR ---
RECEIVED PT IN BED WITH EYES OPEN. NO S/SX OF PAIN NOR DISCOMFORT. NO RESPIRATORY DISTRESS NOTED. SKIN WARM AND DRY TO TOUCH. NO IV ACCESS, MD AWARE ENDORSED. SAFETY PRECAUTION IN PLACE, CALL LIGHT IN REACH.
--- NOTE | 2022-10-22 19:15 | NUR ---
ENDORSED PT TO NIGHT RN FOR CONTINUITY OF CARE, PT IS STABLE AT THIS TIME.
[2022-10-22 20:00] VITALS: BP 135/57
--- NOTE | 2022-10-22 22:00 | NUR ---
INCONTINENT OF URINE, PERINEAL CARE RENDERED. REPOSITIONED FOR COMFORT. HEAD OF THE BED ELEVATED. CALL LIGHT IN REACH.
--- NOTE | 2022-10-23 00:05 | NUR ---
PATIENT IS ASLEEP. NO S/SX OF PAIN NOR DISCOMFORT. CALL LIGHT IN REACH.
[2022-10-23] MEDS: Z-GUARD PASTE TP SCH ×2 (00:37→13:00)
[2022-10-23 04:00] VITALS: BP 155/60
[2022-10-23] MEDS: PIPERACILLIN/TAZOBACTAM 2.25 GM in DEXTROSE 5% 50 ML IV SCH ×3 (04:08→21:00)
--- NOTE | 2022-10-23 04:50 | NUR ---
PATIENT HAD A BOWEL MOVEMENT, AM CARE RENDERED. MADE COMFORTABLE IN BED.
[2022-10-23] MEDS: BLOOD GLUCOSE MONITORING 1 DEV DEV FS SCH ×4 (06:31→21:00)
--- NOTE | 2022-10-23 06:31 | NUR ---
PATIENT IS ASLEEP. NO DISTRESS NOTED. ALL NEEDS ATTENDED TO. SAFETY PRECAUTIONS MAINTAINED DURING THE SHIFT, CALL LIGHT REMAINED WITHIN REACH.
[2022-10-23] MEDS: INSULIN LISPRO SLIDING SCALE 100 UNITS/ML VIAL SUBQ PRN ×3 (06:32→16:50)
--- NOTE | 2022-10-23 07:17 | NUR ---
ENDORSED CARE TO AM NURSE FOR CONTGINUITY OF CARE. PT ASLEEP. NO DISTRESS.
[2022-10-23 08:00] VITALS: BP 146/64
[2022-10-23 08:10] LABS: ANION GAP 16.2 (8-16); BASOPHILS % (AUTO) 0.3 % (0.0-2.0); CARBON DIOXIDE 23.6 mmol/L (21-32); CHLORIDE 106 mmol/L (98-107); CREATININE 0.7 mg/dL (0.6-1.3); EOSINOPHILS # (AUTO) 0.1 K/uL (0-0.4); EOSINOPHILS % (AUTO) 0.9 % (0.0-4.0); GLUCOSE 224 mg/dL (74-106); HEMATOCRIT 31.2 % (36-48); HEMOGLOBIN 10.1 g/dL (12.0-16.0); LYMPHOCYTES # (AUTO) 1.7 K/uL (2.5-16.5); LYMPHOCYTES % (AUTO) 15.4 % (20.5-51.1); MEAN CORPUSCULAR HEMOGLOBIN 27 pg (27-31); MEAN CORPUSCULAR HGB CONC 32 g/dL (33-37); MEAN CORPUSCULAR VOLUME 84.4 fL (80-94); MONOCYTES # (AUTO) 0.5 K/uL (0.8-1.0); MONOCYTES % (AUTO) 4.9 % (1.7-9.3); NEUTROPHILS # (AUTO) 8.7 K/uL (1.8-7.7); NEUTROPHILS % (AUTO) 78.5 % (42.2-75.2); PLATELET COUNT (AUTO) 196 K/uL (140-450); RED CELL DISTRIBUTION WIDTH 16.6 % (11.6-13.7); SODIUM SERUM 143 mmol/L (136-145); UREA NITROGEN, BLOOD 11 mg/dL (7-18); WHITE BLOOD COUNT (AUTO) 11.1 K/uL (4.8-10.8)
[2022-10-23 08:17] LABS: POTASSIUM 2.8 mmol/L (3.5-5.1)
[2022-10-23] MEDS: levETIRAcetam 1,000 MG in NACL 0.9% 100 ML IV SCH ×2 (09:00→21:00)
[2022-10-23] MEDS: POTASSIUM CHLORIDE 10 MEQ TABER PO PRN (10:02)
[2022-10-23] MEDS: PANTOPRAZOLE 40 MG TABEC PO SCH (10:02)
--- NOTE | 2022-10-23 10:29 | NUR ---
WOUND CARE RE-EVALUATION NOTE: S/P DEBRIDEMENT DONE BY DR. MUNSON TO RIGHT SCALP AND SACRALCOCCYX. MASD IMPROVING, RIGHT HIP NO CHANGE OF CONDITION. PENDING DISCUSSION OF HOSPICE CARE. - RIGHT FRONTAL TEMPORAL AND PARTIAL PARIETAL S/P CRANIOTOMY SURGICAL WOUNDS MULTIPLE STABLE NECROTIC TISSUE WAS REMOVED AND LARGEST IS 3X3X0.1CM IRREGULAR SHAPE, MOIST, NO ODOR, TASHA-WOUND SKIN HEALED SCARS AND INTACT. -MOISTURE ASSOCIATED SKIN DAMAGE(MASD) TO: B/L GROINS, MEDIAL THIGHS AND PERINEUM REDNESS AREA IMPROVING -PRESSURE INJURY UN-STAGEABLE TO SACROCOCCYX 3X5.5CM, WOUND BED 100% YELLOW SLOUGH TISSUE, MOIST, MILD ODOR, WOUND EDGE NOT ATTACHED, TASHA-WOUND SKIN MOIST SURROUNDING NON-BLANCHABLE REDNESS INDICATED FURTHER DAMAGE -PRESSURE INJURY STAGE 3 TO RIGHT HIP 1X0.5X0.2CM WOUND BED IS RED 100% GRANULATING TISSUE, MOIST NO ODOR, TASHA WOUND DRYING BLISTERING SKIN WITH NON-BLANCHABLE REDNESS INDICATED FURTHER DAMAGE .
[2022-10-23] MEDS: THERAHONEY GEL 42.5 GM TP SCH (13:00)
[2022-10-23] MEDS: GAUZE TP SCH (13:00)
--- NOTE | 2022-10-23 14:29 | NUR ---
[facility] ADMISSION NURSE, JESSIKA Lerner IS HERE TO RE-ADMIT PATIENT TO HOSPICE. PATIENT'S NEXT KIN IS HERE AT BEDSIDE. NURSE CHANGE PATIENT'S WOUND DRESSING AND CLEANED PATIENT. PATIENT TOLERATE PROCEDURE. WILLL CONTINUE TO MONITOR. Addendum: 10/23/22 at 1519 by Miriam Cruz RN PER [facility] PERSONAL, [facility] WILL ARRANGE A FACILITY TO CARRY ON HOSPICE CARE. AT THIS POINT TIME, PATIENT WILL STAY IN HOSPITAL UNTIL FNS FINALIZE
--- NOTE | 2022-10-23 15:58 | NUR ---
10/23/22 RD FOLLOW UP COMPLETED PLEASE REFER TO NUTRITION ASSESSMENT UNDER CARE ACTIVITY FOR ESTIMATED NUTRITIONAL NEEDS. 1. CONTINUE [id number] MECHANICAL SOFT DIET WITH GLUCERNA 1XDAY AND HEBER BID TOLERATED 2. CONSIDER NUTRITION SUPPORT IF PO INTAKE DOES NOT IMPROVE 3. MONITOR PO INTAKE AND NUTRITION-RELATED LAB VALUES 4. RD TO FOLLOW-UP 3-5 DAYS, MODERATE RISK REVIEWED BY PIYUSH MARTINEZ RD
[2022-10-23 16:00] VITALS: BP 147/65
[2022-10-23] MEDS: HYDROcodone/APAP 7.5/325 MG 1 TAB PO PRN (18:25)
--- NOTE | 2022-10-23 19:23 | NUR ---
GIVING ENDORSEMENT TO PM SHIFT NURSE WHILE PATIENT REST IN BED, VISITOR AT BEDSIDE. [facility] RE-ADMIT PATIENT AND CURRENT ACTIVELY LOOKING FOR SNF FOR PATIENT TO SPEND HER REMAIN TIME.
--- NOTE | 2022-10-23 19:30 | NUR ---
RECEIVED PT from DAY RN FOR CONTINUITY OF CARE. PT IN BED WITH EYES OPEN.PT'S NIECE AT BEDSIDE. NO S/SX OF PAIN OR RESPIRATORY DISTRESS NOTED. SKIN WARM AND DRY TO TOUCH. NO IV ACCESS, MD AWARE ENDORSED. SAFETY PRECAUTION IN PLACE, CALL LIGHT IN REACH. WILL CONTINUE TO MONITOR.
--- NOTE | 2022-10-23 22:00 | NUR ---
IV ON R FOOT G [address] FLUSHING WELL. SCHEDULED KEPPRA STARTED. BLOOD GLUCOSE 155.WILL CONTINUE TO MONITOR.
[2022-10-24] MEDS: Z-GUARD PASTE TP SCH ×2 (01:43→13:00)
--- NOTE | 2022-10-24 02:21 | NUR ---
PATIENT IS ASLEEP. NO DISTRESS NOTED. ALL NEEDS ATTENDED TO. SAFETY PRECAUTIONS MAINTAINED DURING THE SHIFT, CALL LIGHT REMAINED WITHIN REACH.
[2022-10-24 04:00] VITALS: BP 142/60
[2022-10-24] MEDS: PIPERACILLIN/TAZOBACTAM 2.25 GM in DEXTROSE 5% 50 ML IV SCH ×3 (05:34→21:07)
[2022-10-24] MEDS: BLOOD GLUCOSE MONITORING 1 DEV DEV FS SCH ×4 (06:22→21:06)
[2022-10-24] MEDS: INSULIN LISPRO SLIDING SCALE 100 UNITS/ML VIAL SUBQ PRN ×2 (06:23→21:08)
--- NOTE | 2022-10-24 06:36 | NUR ---
PT IS STABLE. NO ACUTE EVENTS THROUGHOUT THE NIGHT. ALL NEEDS ATTENDED. NO S/SX OF DISTRESS OF THE MOMENT.ALL PRECAUTIONS IN PLACE. CALL LIGHT WITHIN REACH. WILL ENDORSE TO AM SHIFT NURSE.
[2022-10-24 07:29] LABS: ANION GAP 13.4 (8-16); CARBON DIOXIDE 20.3 mmol/L (21-32); CHLORIDE 105 mmol/L (98-107); CREATININE 0.6 mg/dL (0.6-1.3); GLUCOSE 233 mg/dL (74-106); SODIUM SERUM 136 mmol/L (136-145); UREA NITROGEN, BLOOD 9 mg/dL (7-18)
[2022-10-24 07:38] LABS: POTASSIUM 2.7 mmol/L (3.5-5.1)
[2022-10-24 07:44] LABS: BASOPHILS % (AUTO) 0.2 % (0.0-2.0); EOSINOPHILS # (AUTO) 0.1 K/uL (0-0.4); EOSINOPHILS % (AUTO) 0.9 % (0.0-4.0); HEMATOCRIT 28.4 % (36-48); HEMOGLOBIN 9.4 g/dL (12.0-16.0); LYMPHOCYTES # (AUTO) 1.3 K/uL (2.5-16.5); LYMPHOCYTES % (AUTO) 12.7 % (20.5-51.1); MEAN CORPUSCULAR HEMOGLOBIN 28 pg (27-31); MEAN CORPUSCULAR HGB CONC 33 g/dL (33-37); MEAN CORPUSCULAR VOLUME 83.7 fL (80-94); MONOCYTES # (AUTO) 0.6 K/uL (0.8-1.0); MONOCYTES % (AUTO) 5.8 % (1.7-9.3); NEUTROPHILS # (AUTO) 8.4 K/uL (1.8-7.7); NEUTROPHILS % (AUTO) 80.4 % (42.2-75.2); PLATELET COUNT (AUTO) 181 K/uL (140-450); RED BLOOD CELL COUNT(AUTO) 3.39 MIL/uL (4.20-5.40); RED CELL DISTRIBUTION WIDTH 16.7 % (11.6-13.7); WHITE BLOOD COUNT (AUTO) 10.4 K/uL (4.8-10.8)
[2022-10-24] MEDS: PANTOPRAZOLE 40 MG TABEC PO SCH (09:00)
[2022-10-24] MEDS: levETIRAcetam 1,000 MG in NACL 0.9% 100 ML IV SCH ×2 (09:00→20:03)
[2022-10-24] MEDS: GAUZE TP SCH (13:00)
[2022-10-24] MEDS: THERAHONEY GEL 42.5 GM TP SCH (13:00)
[2022-10-24] MEDS ORDERED: KCL 20 MEQ/WATER INJ PREMIX 200 ML IV SCH (13:30)
--- NOTE | 2022-10-24 19:30 | NUR ---
RECEIVED PT from DAY RN FOR CONTINUITY OF CARE. PT IN BED WITH EYES OPEN.NO S/SX OF PAIN OR RESPIRATORY DISTRESS NOTED.IV ON R FOOT G24, SL. SKIN WARM AND DRY TO TOUCH. ALL SAFETY PRECAUTION IN PLACE, CALL LIGHT IN REACH. WILL CONTINUE TO MONITOR.
--- NOTE | 2022-10-24 21:30 | NUR ---
SCHEDULE MEDICATIONS GIVEN. NO ADVERSE REACTION NOTED. WILL CONTINUE TO MONITOR THE PT.
[2022-10-25] VITALS: BP 159/102
--- NOTE | 2022-10-25 00:25 | NUR ---
PATIENT IS ASLEEP. NO DISTRESS NOTED. ALL NEEDS ATTENDED TO. SAFETY PRECAUTIONS MAINTAINED DURING THE SHIFT, CALL LIGHT REMAINED WITHIN REACH.
[2022-10-25] MEDS: Z-GUARD PASTE TP SCH ×2 (01:06→13:00)
[2022-10-25] MEDS: PIPERACILLIN/TAZOBACTAM 2.25 GM in DEXTROSE 5% 50 ML IV SCH ×3 (05:59→20:27)
[2022-10-25] MEDS: BLOOD GLUCOSE MONITORING 1 DEV DEV FS SCH ×4 (06:44→21:18)
[2022-10-25] MEDS: INSULIN LISPRO SLIDING SCALE 100 UNITS/ML VIAL SUBQ PRN ×3 (06:45→17:26)
[2022-10-25 08:00] VITALS: BP 155/62
[2022-10-25] MEDS: levETIRAcetam 1,000 MG in NACL 0.9% 100 ML IV SCH ×2 (09:17→21:18)
[2022-10-25] MEDS: PANTOPRAZOLE 40 MG TABEC PO SCH (09:18)
--- NOTE | 2022-10-25 09:30 | NUR ---
0900AM KEPPRA DOSE NOT GIVEN. DUE AT 2100
[2022-10-25] MEDS: GAUZE TP SCH (13:00)
[2022-10-25] MEDS: THERAHONEY GEL 42.5 GM TP SCH (13:00)
--- NOTE | 2022-10-25 13:15 | NUR ---
RECEIVED REPORT FROM IRLANDA MONTANO FOR CONTINUITY OF CARE. PT AWAKE IN BED WITH EYES CLOSED IN BED. RESPIRATIONS EVEN AND UNLABORED ON RA. NO DISTRESS NOTED. NOTED BRUISES AND SKIN TEAR ON BILATERAL UPPER EXT. RIGHT SCALP COVERED WITH DRESSING. RIGHT HIP AND SACCRAL AREA ALSO COVERED WITH DRESSING. CALL LIGHT WITHIN REACH. SAFETY PRECAUTIONS IN PLACE.
--- NOTE | 2022-10-25 14:11 | NUR ---
WOUND CARE DONE. PT TOLERATED WELL.
[2022-10-25 16:00] VITALS: BP 154/70
--- NOTE | 2022-10-25 17:00 | NUR ---
ASSISTED IRLANDA MONTANO IN INSERTING NG TUBE. NG TUBE INSERTED. PT TOLERATED WELL. CHEST XRAY AND FNS CONSULT ORDERED PER .
--- NOTE | 2022-10-25 17:28 | NUR ---
SLIDING SCALE INSULIN ADMINISTERED FOR BS 160.
--- NOTE | 2022-10-25 19:11 | NUR ---
ENDORSED PT TO BLINDSTITCH LAPEL PADDER NURSE DAMON FOR CONTINUITY OF CARE. ALL NEEDS MET THROUGHOUT SHIFT. PT IS IN STABLE CONDITION.
--- NOTE | 2022-10-25 19:39 | NUR ---
RECEIVED REPORT OF PT IN STABLE CONDITION.RESP.UNLABORED IN RA.NGT IS IN PLACE.SL PATENT.NO S/S OF ANY DISTRESS NOTED.CALL LIGHT IN REACH.
[2022-10-25 20:00] VITALS: BP 155/65
[2022-10-26] MEDS: Z-GUARD PASTE TP SCH ×2 (01:15→13:37)
--- NOTE | 2022-10-26 03:00 | NUR ---
SLEEPING.TURNED Q2H.NO DISTRESS NOTED NOW.
[2022-10-26 04:00] VITALS: BP 149/67
[2022-10-26] MEDS: PIPERACILLIN/TAZOBACTAM 2.25 GM in DEXTROSE 5% 50 ML IV SCH ×3 (04:52→20:02)
[2022-10-26] MEDS: BLOOD GLUCOSE MONITORING 1 DEV DEV FS SCH ×4 (05:40→21:06)
[2022-10-26] MEDS: INSULIN LISPRO SLIDING SCALE 100 UNITS/ML VIAL SUBQ PRN ×4 (06:06→21:10)
--- NOTE | 2022-10-26 06:10 | NUR ---
SLEPT WELL.CONDITION STABLE.NO S/S OF ANY DISTRESS NOTED.
[2022-10-26 07:15] LABS: BASOPHILS % (AUTO) 0.2 % (0.0-2.0); EOSINOPHILS # (AUTO) 0.1 K/uL (0-0.4); EOSINOPHILS % (AUTO) 0.5 % (0.0-4.0); HEMOGLOBIN 9.6 g/dL (12.0-16.0); LYMPHOCYTES # (AUTO) 2.1 K/uL (2.5-16.5); LYMPHOCYTES % (AUTO) 18.5 % (20.5-51.1); MEAN CORPUSCULAR HEMOGLOBIN 28 pg (27-31); MEAN CORPUSCULAR HGB CONC 33 g/dL (33-37); MEAN CORPUSCULAR VOLUME 83.7 fL (80-94); MONOCYTES # (AUTO) 0.7 K/uL (0.8-1.0); MONOCYTES % (AUTO) 6.1 % (1.7-9.3); NEUTROPHILS # (AUTO) 8.5 K/uL (1.8-7.7); NEUTROPHILS % (AUTO) 74.7 % (42.2-75.2); PLATELET COUNT (AUTO) 171 K/uL (140-450); RED BLOOD CELL COUNT(AUTO) 3.47 MIL/uL (4.20-5.40); RED CELL DISTRIBUTION WIDTH 17.8 % (11.6-13.7); WHITE BLOOD COUNT (AUTO) 11.4 K/uL (4.8-10.8)
[2022-10-26 07:19] LABS: CARBON DIOXIDE 24.4 mmol/L (21-32); CHLORIDE 100 mmol/L (98-107); CREATININE 0.7 mg/dL (0.6-1.3); GLUCOSE 187 mg/dL (74-106); SODIUM SERUM 140 mmol/L (136-145); UREA NITROGEN, BLOOD 7 mg/dL (7-18)
[2022-10-26 07:41] LABS: POTASSIUM 2.4 mmol/L (3.5-5.1)
[2022-10-26 07:42] LABS: MAGNESIUM 0.9 mg/dL (1.8-2.4)
[2022-10-26] MEDS ORDERED: MAG SULF 2000 MG/WATER PREMIX 50 ML IV SCH ×2 (08:00→13:00)
--- NOTE | 2022-10-26 08:00 | NUR ---
RECEIVED PATIENT IN BED, APPEARS COMFORTABLE. NON-VERBAL. LETHARGIC. NGT IN PLACE. PATIENT NOT IN ANY FORM OF DISTRESS. SEIZURE PRECAUTION MAINTAINED.
[2022-10-26] MEDS ORDERED: POTASSIUM CHLORIDE 40 MEQ, LIDOCAINE 1% 25 MG in NACL 0.9% 250 ML IV SCH ×2 (09:00→16:30)
--- NOTE | 2022-10-26 09:30 | NUR ---
CRITICAL LAB OF K-2.[address] TAPIA MADE AWARE WITH ORDERS.
[2022-10-26] MEDS: levETIRAcetam 1,000 MG in NACL 0.9% 100 ML IV SCH ×2 (09:36→20:47)
[2022-10-26] MEDS: PANTOPRAZOLE 40 MG TABEC PO SCH (09:37)
[2022-10-26] MEDS: POTASSIUM CHLORIDE 10 MEQ TABER PO PRN (09:37)
[2022-10-26] MEDS: THERAHONEY GEL 42.5 GM TP SCH (13:37)
[2022-10-26] MEDS: GAUZE TP SCH (13:37)
[2022-10-26] MEDS ORDERED: MAG SULF 2000 MG/WATER PREMIX 50 ML IV ONE (16:44)
--- NOTE | 2022-10-26 17:00 | NUR ---
NGT FEEDING STARTED. PLACEMENT VERIFIED. NO RESIDUALS NOTED. WILL TITRATE FEEDING UNTIL GOAL OF 50CC IS REACHED. PATIENT REMAINS STABLE AT THIS TIME.
--- NOTE | 2022-10-26 19:15 | NUR ---
RECEIVED PT WITH EYES CLOSED, SQUIRMS TO TOUCH, NONVERBAL, NOT OPENING EYES, ON ROOM AIR, MAG-RIDER INFUSING WELL VIA RT FOOT IV SITE #24, INTACT AND PATENT, WITH NGT TO LEFT NARES WITH FEEDING ON-GOING, HOB ELEVATED AT ALL TIMES, SEIZURE PRECAUTION IN PLACE, SIDE RAILS UP AND PADDED, FALL PRECAUTIONS IN PLACE, FREQUENT ROUNDS WILL BE MADE.
[2022-10-26 20:00] VITALS: BP 147/65
--- NOTE | 2022-10-26 20:50 | NUR ---
NGT RESIDUAL OF 10ML/H, CONTINUE FEEDING AT 50ML/H WITH H2O FLUSH OF 100ML Q6H, DUE KEPPRA IVPB ADMINISTERED, REPOSITIONED AND OFFLOAD PRESSURE AREAS.
[2022-10-27] MEDS: Z-GUARD PASTE TP SCH ×2 (01:03→13:48)
[2022-10-27 04:00] VITALS: BP 152/68
--- NOTE | 2022-10-27 04:00 | NUR ---
PT SLEEPING, OPEN EYES TO TOUCH, APHASIC, VITAL SIGNS TAKEN, BP SLIGHTLY ELEVATED, ASYMPTOMATIC, FLACC-0, NO SOB NOTED, MONITORED CLOSELY.
[2022-10-27] MEDS: PIPERACILLIN/TAZOBACTAM 2.25 GM in DEXTROSE 5% 50 ML IV SCH ×3 (04:26→22:00)
[2022-10-27] MEDS: INSULIN LISPRO SLIDING SCALE 100 UNITS/ML VIAL SUBQ PRN ×4 (06:05→20:38)
--- NOTE | 2022-10-27 06:10 | NUR ---
BLOOD SUGAR CHECKED WITH 383 RESULT, COVERAGE GIVEN, TUBE FEEDING ON-GOING.
[2022-10-27] MEDS: BLOOD GLUCOSE MONITORING 1 DEV DEV FS SCH ×4 (06:52→20:35)
--- NOTE | 2022-10-27 07:18 | NUR ---
PT SLEEPING, NO SIGNS OF DISTRESS, REPORT GIVEN TO RN ADZ FOR CONTINUITY OF CARE.
[2022-10-27 07:25] LABS: BASOPHILS % (AUTO) 0.2 % (0.0-2.0); EOSINOPHILS % (AUTO) 0.5 % (0.0-4.0); HEMATOCRIT 31.8 % (36-48); HEMOGLOBIN 10.6 g/dL (12.0-16.0); LYMPHOCYTES # (AUTO) 1.3 K/uL (2.5-16.5); LYMPHOCYTES % (AUTO) 14.6 % (20.5-51.1); MEAN CORPUSCULAR HEMOGLOBIN 28 pg (27-31); MEAN CORPUSCULAR HGB CONC 33 g/dL (33-37); MEAN CORPUSCULAR VOLUME 83.5 fL (80-94); MONOCYTES # (AUTO) 0.5 K/uL (0.8-1.0); MONOCYTES % (AUTO) 5.3 % (1.7-9.3); NEUTROPHILS # (AUTO) 7.1 K/uL (1.8-7.7); NEUTROPHILS % (AUTO) 79.4 % (42.2-75.2); PLATELET COUNT (AUTO) 191 K/uL (140-450); RED BLOOD CELL COUNT(AUTO) 3.81 MIL/uL (4.20-5.40); RED CELL DISTRIBUTION WIDTH 17.7 % (11.6-13.7); WHITE BLOOD COUNT (AUTO) 8.9 K/uL (4.8-10.8)
[2022-10-27 07:27] LABS: ANION GAP 15.3 (8-16); CARBON DIOXIDE 25.2 mmol/L (21-32); CHLORIDE 102 mmol/L (98-107); CREATININE 0.7 mg/dL (0.6-1.3); GLUCOSE 392 mg/dL (74-106); POTASSIUM 3.5 mmol/L (3.5-5.1); SODIUM SERUM 139 mmol/L (136-145); UREA NITROGEN, BLOOD 13 mg/dL (7-18)
[2022-10-27 07:35] LABS: MAGNESIUM 1.3 mg/dL (1.8-2.4)
[2022-10-27] MEDS: levETIRAcetam 1,000 MG in NACL 0.9% 100 ML IV SCH ×2 (09:30→20:49)
[2022-10-27] MEDS: PANTOPRAZOLE 40 MG TABEC PO SCH (09:30)
[2022-10-27 12:00] VITALS: BP 165/61
[2022-10-27] MEDS: GAUZE TP SCH (13:47)
[2022-10-27] MEDS: THERAHONEY GEL 42.5 GM TP SCH (13:47)
[2022-10-27] MEDS: MAG SULF 2000 MG/WATER PREMIX 50 ML IV PRN (18:18)
--- NOTE | 2022-10-27 18:43 | NUR ---
10/27/22 RD FOLLOW UP COMPLETED.PLEASE REFER TO NUTRITION ASSESSMENT UNDER CARE ACTIVITY FOR ESTIMATED NUTRITIONAL NEEDS. 1. CONTINUE VITAL AF 1.2 @ 50ML/HR; FWF 100 Q6H OR PER MD, WITH GLUCERNA 1XDAY AND HEBER BID TOLERATED 2. MONITOR FOR GI SYMPTOMS AND NUTRITION-RELATED LAB VALUES 3. RD TO FOLLOW-UP IN 3-5 DAYS PATIENT IS MODERATE RISK. NAE MALLOY RD
--- NOTE | 2022-10-27 19:25 | NUR ---
RECEIVED PATIENT LYING ON THE BED, HOB ELEVATED, ASLEEP, NO SIGNS OF DISTRESS NOTED. HAS IV ACCESS SITE ON RIGHT FOOT G20, PATIENT IS ON NGT FEEDING VITAL AF 50ML/HR. SAFETY PRECAUTIONS MAINTAINED. WILL CONTINUE TO MONITOR THE PATIENT.
[2022-10-27 20:00] VITALS: BP 132/45
--- NOTE | 2022-10-27 20:50 | NUR ---
KEPPRA GIVEN ORDERED.
--- NOTE | 2022-10-28 00:40 | NUR ---
BEDSIDE CARE DONE, PATIENT HAS LARGE BM, DRESSING CHANGED ON WOUND ON SACRUM. PATIENT REPOSITIONED. HOB ELEVATED FOR ASPIRATION PRECAUTION. SAFETY PRECAUTIONS MAINTAINED. WILL CONTINUE TO MONITOR THE PATIENT.
[2022-10-28] MEDS: Z-GUARD PASTE TP SCH ×2 (01:55→13:00)
[2022-10-28 04:00] VITALS: BP 144/60
[2022-10-28] MEDS: PIPERACILLIN/TAZOBACTAM 2.25 GM in DEXTROSE 5% 50 ML IV SCH ×3 (05:22→21:42)
--- NOTE | 2022-10-28 05:25 | NUR ---
ZOSYN GIVEN ORDERED. SAFETY PRECAUTIONS IN PLACE. WILL CONTINUE TO MONITOR THE PATIENT.
[2022-10-28] MEDS: BLOOD GLUCOSE MONITORING 1 DEV DEV FS SCH ×4 (06:59→21:58)
[2022-10-28] MEDS: INSULIN LISPRO SLIDING SCALE 100 UNITS/ML VIAL SUBQ PRN ×4 (07:00→22:02)
[2022-10-28 07:25] LABS: BASOPHILS % (AUTO) 0.2 % (0.0-2.0); EOSINOPHILS % (AUTO) 0.4 % (0.0-4.0); HEMATOCRIT 27.7 % (36-48); HEMOGLOBIN 9.2 g/dL (12.0-16.0); LYMPHOCYTES # (AUTO) 1.3 K/uL (2.5-16.5); LYMPHOCYTES % (AUTO) 11.9 % (20.5-51.1); MEAN CORPUSCULAR HEMOGLOBIN 28 pg (27-31); MEAN CORPUSCULAR HGB CONC 33 g/dL (33-37); MONOCYTES # (AUTO) 0.5 K/uL (0.8-1.0); MONOCYTES % (AUTO) 4.7 % (1.7-9.3); NEUTROPHILS # (AUTO) 8.8 K/uL (1.8-7.7); NEUTROPHILS % (AUTO) 82.8 % (42.2-75.2); PLATELET COUNT (AUTO) 172 K/uL (140-450); RED CELL DISTRIBUTION WIDTH 17.4 % (11.6-13.7); WHITE BLOOD COUNT (AUTO) 10.6 K/uL (4.8-10.8)
--- NOTE | 2022-10-28 07:30 | NUR ---
ENDORSED PATIENT TO DAY NURSE FOR CONTINUITY OF CARE. NEEDS MET THROUGHOUT THE SHIFT. PATIENT IS STABLE.
[2022-10-28 07:38] LABS: ANION GAP 12.7 (8-16); CARBON DIOXIDE 28.1 mmol/L (21-32); CHLORIDE 99 mmol/L (98-107); CREATININE 0.7 mg/dL (0.6-1.3); GLUCOSE 400 mg/dL (74-106); SODIUM SERUM 137 mmol/L (136-145); UREA NITROGEN, BLOOD 14 mg/dL (7-18)
[2022-10-28 07:45] LABS: MAGNESIUM 1.5 mg/dL (1.8-2.4); PHOSPHORUS 1.7 mg/dL (2.5-4.9)
[2022-10-28 08:15] LABS: POTASSIUM 2.8 mmol/L (3.5-5.1)
[2022-10-28] MEDS: POTASSIUM CHLORIDE 10 MEQ TABER PO PRN (09:19)
[2022-10-28] MEDS: PANTOPRAZOLE 40 MG TABEC PO SCH (09:19)
[2022-10-28] MEDS: levETIRAcetam 1,000 MG in NACL 0.9% 100 ML IV SCH ×2 (09:21→21:37)
[2022-10-28 10:00] VITALS: BP 156/67
[2022-10-28] MEDS ORDERED: INSULIN LANTUS 100 UNITS/ML 10 ML VIAL SUBQ SCH (10:05)
[2022-10-28] MEDS: GAUZE TP SCH (13:00)
[2022-10-28] MEDS: THERAHONEY GEL 42.5 GM TP SCH (13:00)
--- NOTE | 2022-10-28 19:25 | NUR ---
RECEIVED ENDORSEMENT FROM DAY SHIFT NURSE FOR CONTINUITY OF CARE. PT IS AWAKE, UNABLE TO UNDERSTAND CONVERSATION. PT IS BED BOUND AND ON ROOM AIR. PT IS WITH NASOGASTRIC FEEDING ON VITAL AT 50ML/HR WITH FLUSH 100ML Q 6 HRS. IV SITE IS ON RIGHT FOREARM 24 G.
[2022-10-28 20:00] VITALS: BP 128/65
--- NOTE | 2022-10-28 22:02 | NUR ---
PT IS NON VERBAL. BLOOD SUGAR CHECKED = 281 = 6 UNITS OF HUMALOG INSULIN ADMINISTERED. PT TOLERATES WELL, NO FACIAL GRIMACING.
[2022-10-28] MEDS: MAG SULF 2000 MG/WATER PREMIX 50 ML IV PRN (22:58)
--- NOTE | 2022-10-28 22:58 | NUR ---
PT MAGNESIUM = 1.5. MAGNESIUM SULFATE 2G/50ML ADMINISTERED ORDER. PT TOLERATES WELL.
[2022-10-29] MEDS: Z-GUARD PASTE TP SCH ×2 (01:00→12:10)
[2022-10-29 04:00] VITALS: BP 126/60
[2022-10-29] MEDS: PIPERACILLIN/TAZOBACTAM 2.25 GM in DEXTROSE 5% 50 ML IV SCH ×3 (05:32→21:46)
[2022-10-29] MEDS: BLOOD GLUCOSE MONITORING 1 DEV DEV FS SCH ×4 (06:56→21:44)
[2022-10-29] MEDS: INSULIN LISPRO SLIDING SCALE 100 UNITS/ML VIAL SUBQ PRN ×4 (06:57→21:58)
--- NOTE | 2022-10-29 06:57 | NUR ---
PT BLOOD SUGAR = 394 = 10 UNITS OF INSULIN HUMOLOG ADMINISTERED ORDER.
[2022-10-29 07:03] LABS: BASOPHILS % (AUTO) 0.2 % (0.0-2.0); EOSINOPHILS % (AUTO) 0.1 % (0.0-4.0); HEMATOCRIT 27.8 % (36-48); LYMPHOCYTES # (AUTO) 1.9 K/uL (2.5-16.5); LYMPHOCYTES % (AUTO) 12.7 % (20.5-51.1); MEAN CORPUSCULAR HEMOGLOBIN 27 pg (27-31); MEAN CORPUSCULAR HGB CONC 32 g/dL (33-37); MEAN CORPUSCULAR VOLUME 83.9 fL (80-94); MONOCYTES # (AUTO) 0.4 K/uL (0.8-1.0); MONOCYTES % (AUTO) 2.7 % (1.7-9.3); NEUTROPHILS # (AUTO) 12.4 K/uL (1.8-7.7); NEUTROPHILS % (AUTO) 84.3 % (42.2-75.2); PLATELET COUNT (AUTO) 181 K/uL (140-450); RED BLOOD CELL COUNT(AUTO) 3.31 MIL/uL (4.20-5.40); WHITE BLOOD COUNT (AUTO) 14.7 K/uL (4.8-10.8)
[2022-10-29 07:08] LABS: PHOSPHORUS 1.6 mg/dL (2.5-4.9)
[2022-10-29 07:21] LABS: ANION GAP 13.2 (8-16); CARBON DIOXIDE 26.7 mmol/L (21-32); CHLORIDE 99 mmol/L (98-107); CREATININE 0.8 mg/dL (0.6-1.3); SODIUM SERUM 136 mmol/L (136-145); UREA NITROGEN, BLOOD 17 mg/dL (7-18)
[2022-10-29 07:23] LABS: GLUCOSE 428 mg/dL (74-106); POTASSIUM 2.9 mmol/L (3.5-5.1)
--- NOTE | 2022-10-29 08:11 | NUR ---
NURSES NOTE PATIENT RECEIVED AT BED SIDE , A/OX0 , BEDBOUND , SKIN NOT INTACT , ON NG TUBE VITAL RUINING 50CCWIT FREE WATER FLUSH 100/6HOURS , INCONTINENTX2 , NO COMPLAIN AT THIS TIME , WILL CONTINUE OBSERVE .
--- NOTE | 2022-10-29 08:20 | NUR ---
NURSES NOTE DR RUBY INFORMED ABOUT K 2.9 AND GLUCOSE 425 ,. HE ORDER LANTUS 20UNT SQ, AND I GIVE 40MEG POTASSIUM VIA NG TUBE .
[2022-10-29] MEDS: levETIRAcetam 1,000 MG in NACL 0.9% 100 ML IV SCH (08:39)
[2022-10-29] MEDS: PANTOPRAZOLE 40 MG TABEC PO SCH (08:39)
[2022-10-29] MEDS: POTASSIUM CHLORIDE 10 MEQ TABER PO PRN (08:41)
[2022-10-29] MEDS ORDERED: INSULIN LANTUS 100 UNITS/ML 10 ML VIAL SUBQ SCH (09:00)
[2022-10-29 09:37] VITALS: BP 128/61
--- NOTE | 2022-10-29 10:58 | NUR ---
DRESSING ON HER WOUND DONE .
--- NOTE | 2022-10-29 11:40 | NUR ---
NURSES NOTE PATIENT STILL THE BLANK NO NEW FOR HER , ON NG TUBE FEEDING , DRESSING ON WOUND DONE HER MEDS GIVEN . STILL UNDER OBSERVE .
[2022-10-29] MEDS: GAUZE TP SCH (12:10)
[2022-10-29] MEDS: THERAHONEY GEL 42.5 GM TP SCH (12:11)
--- NOTE | 2022-10-29 12:57 | NUR ---
NURSES NOTE FAMILY CALL ME THEY WANTS TO TALK WITH I CALL DR RUBY ON HIS EXT [id number] I GIVE HIME THE DAUGHTER # [phone] HER NAME OMARI .
[2022-10-29 16:14] LABS: BASOPHILS % (AUTO) 0.2 % (0.0-2.0); EOSINOPHILS % (AUTO) 0.4 % (0.0-4.0); HEMATOCRIT 27.2 % (36-48); LYMPHOCYTES # (AUTO) 1.7 K/uL (2.5-16.5); LYMPHOCYTES % (AUTO) 13.8 % (20.5-51.1); MEAN CORPUSCULAR HEMOGLOBIN 28 pg (27-31); MEAN CORPUSCULAR HGB CONC 33 g/dL (33-37); MEAN CORPUSCULAR VOLUME 83.1 fL (80-94); MONOCYTES # (AUTO) 0.5 K/uL (0.8-1.0); MONOCYTES % (AUTO) 3.8 % (1.7-9.3); NEUTROPHILS # (AUTO) 10.1 K/uL (1.8-7.7); NEUTROPHILS % (AUTO) 81.8 % (42.2-75.2); PLATELET COUNT (AUTO) 192 K/uL (140-450); RED BLOOD CELL COUNT(AUTO) 3.28 MIL/uL (4.20-5.40); RED CELL DISTRIBUTION WIDTH 17.7 % (11.6-13.7); WHITE BLOOD COUNT (AUTO) 12.4 K/uL (4.8-10.8)
[2022-10-29 17:32] VITALS: BP 145/56
--- NOTE | 2022-10-29 17:43 | NUR ---
UPDATE PT , NO NEW FOR HER STILL THE BLANK PATIENT A/OX0 , NON VERBAL , ON NG TUBE FEEDING VITAL 50CC/H , SKIN NOT INTACT HAS BOWEL MOMENT , EEG DONE , STILL UNDER OBSERVE .
--- NOTE | 2022-10-29 19:05 | NUR ---
NURSES NOT REPORT DOROTA FOURNIER TO JUWAN ALL HER QUESTION ANSWER
--- NOTE | 2022-10-29 19:15 | NUR ---
RECEIVED REPORT FROM DAY SHIFT NURSE FOR CONTINUITY OF CARE. PT IS ON BED WITH NO RESPONSE. IV SITE ON RIGHT FOOT 24G INTACT AND PATENT. IV IS WITH KVO TO KEEP VEIN OPEN RATE. NASOGASTRIC TUBE INTACT AND PATENT. TUBE FEEDING VITAL IS INFUSING WELL AT 50 ML/HR. PT IS INCONTINENT.
--- NOTE | 2022-10-29 20:30 | NUR ---
PT MOVES HER RIGHT HAND SLOW WHEN THIS NURSE WOULD CHECK HER B/P.
--- NOTE | 2022-10-29 20:30 | NUR ---
PT NOTED WITH SLIGHTLY TWITCHING ON LEFT FACE, REPORTED TO DR. FLORI MD INCREASE KEPPRA FROM 1,000 MG BID TO KEPPRA 1,500MG BID. ALSO STATED WOULD CONTACT DR. BAHENA FOR NEURO CONSULT.
--- NOTE | 2022-10-29 21:00 | NUR ---
PT BLOOD SUGAR CHECK = 244 = 4 UNITS HUMOLOG INSULIN ADMINISTERED PER SLIDING SCALE. PT TOLERATES WELL.
[2022-10-29] MEDS: levETIRAcetam 1,500 MG in NACL 0.9% 100 ML IV SCH (21:46)
[2022-10-29] MEDS ORDERED: levETIRAcetam 100 MG/ML VIAL IV ONE (22:02)
--- NOTE | 2022-10-29 22:02 | NUR ---
OLD ORDER OF KEPRRA 1000MG. DR. RUBY INCREASE KEPPRA ORDER TO 1,500MG RELATED TO THE LEFT FACE TWITCHING. TOOK 1 VIAL OF KEPPRA 500 MG AND ADDED TO 1,000MG OF KEPPRA, TOTAL = 1,500MG KEPPRA ADMINISTERED TO PT.
[2022-10-30] MEDS: Z-GUARD PASTE TP SCH ×2 (01:00→13:00)
[2022-10-30 04:00] VITALS: BP 165/56
[2022-10-30] MEDS: PIPERACILLIN/TAZOBACTAM 2.25 GM in DEXTROSE 5% 50 ML IV SCH ×3 (05:55→21:44)
[2022-10-30] MEDS: hydrALAZINE 20 MG/ML VIAL IVP PRN (06:30)
--- NOTE | 2022-10-30 06:30 | NUR ---
PT BLOOD PRESSURE = 165/56, MEDICATION FOR ELEVATED BLOOD PRESSURE HYDRALAZINE 10 MG NEEDED ADMINISTERED. PT TOLERATES WELL. NO SIDE REACTION OR ALLERGY.
[2022-10-30] MEDS: BLOOD GLUCOSE MONITORING 1 DEV DEV FS SCH ×4 (06:35→21:57)
[2022-10-30] MEDS: INSULIN LISPRO SLIDING SCALE 100 UNITS/ML VIAL SUBQ PRN ×4 (06:38→22:00)
--- NOTE | 2022-10-30 06:38 | NUR ---
PT BLOOD SUGAR CHECK = 373. ADMINISTERED HUMOLOG INSULIN = 10 UNITS PER SLIDING SCALE. PT TOLERATES WELL, NO SIDE REACTION OR ALLERGY.
[2022-10-30 06:55] LABS: BASOPHILS % (AUTO) 0.2 % (0.0-2.0); EOSINOPHILS # (AUTO) 0.1 K/uL (0-0.4); EOSINOPHILS % (AUTO) 1.2 % (0.0-4.0); HEMATOCRIT 27.1 % (36-48); HEMOGLOBIN 9.1 g/dL (12.0-16.0); LYMPHOCYTES # (AUTO) 2.3 K/uL (2.5-16.5); LYMPHOCYTES % (AUTO) 21.6 % (20.5-51.1); MEAN CORPUSCULAR HEMOGLOBIN 28 pg (27-31); MEAN CORPUSCULAR HGB CONC 34 g/dL (33-37); MEAN CORPUSCULAR VOLUME 83.3 fL (80-94); MONOCYTES # (AUTO) 0.4 K/uL (0.8-1.0); MONOCYTES % (AUTO) 3.9 % (1.7-9.3); NEUTROPHILS # (AUTO) 7.9 K/uL (1.8-7.7); NEUTROPHILS % (AUTO) 73.1 % (42.2-75.2); PLATELET COUNT (AUTO) 178 K/uL (140-450); RED BLOOD CELL COUNT(AUTO) 3.25 MIL/uL (4.20-5.40); RED CELL DISTRIBUTION WIDTH 17.9 % (11.6-13.7); WHITE BLOOD COUNT (AUTO) 10.8 K/uL (4.8-10.8)
[2022-10-30 07:01] LABS: CARBON DIOXIDE 29.8 mmol/L (21-32); CHLORIDE 100 mmol/L (98-107); CREATININE 0.7 mg/dL (0.6-1.3); GLUCOSE 372 mg/dL (74-106); SODIUM SERUM 137 mmol/L (136-145); UREA NITROGEN, BLOOD 18 mg/dL (7-18)
[2022-10-30 07:11] LABS: MAGNESIUM 1.6 mg/dL (1.8-2.4); PHOSPHORUS 1.4 mg/dL (2.5-4.9)
--- NOTE | 2022-10-30 07:20 | NUR ---
ASSUMED CONTINUITY OF CARE. NO SIGNS AND SYMPTOMS OF ACUTE DISTRESS NOTED. INITIAL ASSESSMENT DONE. SEIZURE AND ASPIRATION PRECAUTION APPLIED. CALL LIGHT WITHIN REACH.
--- NOTE | 2022-10-30 07:35 | NUR ---
PT IS ON STABLE CONDITION. ALL SAFETY MEASURES ARE IN PLACE. ENDORSED TO DAY SHIFT NURSE FOR CONTINUITY OF CARE. BLOOD PRESSURE WILL BE ASSESSED BY DAY SHIFT NURSE.
[2022-10-30 08:00] VITALS: BP 153/46
[2022-10-30 08:30] LABS: POTASSIUM 2.8 mmol/L (3.5-5.1)
[2022-10-30] MEDS: levETIRAcetam 1,500 MG in NACL 0.9% 100 ML IV SCH ×2 (09:31→22:20)
[2022-10-30] MEDS: PANTOPRAZOLE 40 MG TABEC PO SCH (09:51)
[2022-10-30] MEDS: INSULIN LANTUS 100 UNITS/ML 10 ML VIAL SUBQ SCH (09:52)
[2022-10-30] MEDS ORDERED: POTASSIUM CHLORIDE 40 MEQ, LIDOCAINE 1% 25 MG in NACL 0.9% 250 ML IV SCH (10:00)
--- NOTE | 2022-10-30 12:06 | NUR ---
UPDATED CLINICALS SENT TO [facility].
[2022-10-30] MEDS: THERAHONEY GEL 42.5 GM TP SCH (13:00)
[2022-10-30] MEDS: GAUZE TP SCH (13:00)
--- NOTE | 2022-10-30 13:35 | NUR ---
ASSISTED WOUND CARE NURSE RADHA PAULA FOR PT. WOUND CARE TREATMENT.
--- NOTE | 2022-10-30 14:17 | NUR ---
WOUND CARE RE-EVALUATION NOTE: WOUND ASSESSMENT DONE WITH PRIMARY NURSE ANAHI. PT WITH LARGE LOOSE WATERY STOOL WITH SACRAL WOUND CONTAMINATION OBSERVED. POC DISCUSSED WITH PRIMARY NURSE. WOUND PHOTOS OBTAINED AND PLACE IN CHART. WILL CONTINUE AUTOLYTIC DEBRIDEMENT TO SACRAL WOUND. PT. COMORBIDITIES DELAYED WOUND HEALING AND AT HI RISK FOR FURTHER SKIN BREAKS. 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 -MOISTURE ASSOCIATED SKIN DAMAGE(MASD) TO: B/L GROINS, MEDIAL THIGHS AND PERINEUM REDNESS AREA RED, INTACT -PRESSURE INJURY UN-STAGEABLE TO SACROCOCCYX 9X11CM, WOUND BED 100% BROWN, BLACK SLOUGH TISSUE, MOIST, NO ODOR, WOUND EDGE NOT ATTACHED, TASHA-WOUND SKIN MOIST SURROUNDING NON-BLANCHABLE REDNESS INDICATED FURTHER DAMAGE -PRESSURE INJURY STAGE 3 TO RIGHT HIP RESURFACE WITH DRY ABRASION NO OPEN WOUND
[2022-10-30] MEDS: clonazePAM 0.5 MG TAB PO SCH ×2 (15:37→21:48)
[2022-10-30 16:00] VITALS: BP 155/53
[2022-10-30] MEDS: MAG SULF 2000 MG/WATER PREMIX 50 ML IV PRN (16:28)
--- NOTE | 2022-10-30 19:15 | NUR ---
BEDSIDE REPORT GIVEN TO CASANDRA CHAUDHRY IN STABLE CONDITION.
--- NOTE | 2022-10-30 19:17 | NUR ---
RECD. RESTING IN BED, EYES CLOSED, RESPONDS TO STIMULI BY TRYING TO OPEN EYES AND MOVED LIPS. RESPIRATION EVEN AND UNLABORED. NGT LEFT NARES, WITH VITAL AF INFUSING AT 50 ML/HR. IV OF NS INFUSING TKO, AT RIGHT FOOT G24. SAFETY MEASURES ENFORCED, SIDE RAILS PADDED FOR SEIZURE PRECAUTION.ON WOUND CARE BED, PATIENT WITH SACRAL WOUND COVERED WITH DRESSING DRY AND INTACT. WITH BILATERAL HEEL PROTECTOR IN PLACED. NO APPEARANCE OF PAIN NOTED, FLACC -0.
[2022-10-30 20:00] VITALS: BP 154/57
--- NOTE | 2022-10-30 20:00 | NUR ---
Patient's Plan of Care was discussed and reviewed with COTTON JAMMER: CASANDRA DE DIOS
--- NOTE | 2022-10-30 21:47 | NUR ---
SCHEDULED MEDICATION ADMINISTERED VIA NGT, TOLERATED WELL.
--- NOTE | 2022-10-31 | NUR ---
SLEEPING COMFORTABLY. RESPIRATION EVEN AND UNLABORED. NO SOB NOTED.
--- NOTE | 2022-10-31 01:00 | NUR ---
TOLERATED WELL, IV ANTIBIOTIC AND KEPPRA IVPB INFUSED BY IRLANDA VAZQUEZ.
[2022-10-31] MEDS: Z-GUARD PASTE TP SCH ×2 (01:44→13:28)
--- NOTE | 2022-10-31 03:00 | NUR ---
HAD LOOSE BM, CLEANSED AND CHANGED BY BREWERY PUMPER. MADE COMFORTABLE IN BED WITH PILLOWS.
[2022-10-31 04:00] VITALS: BP 131/66
--- NOTE | 2022-10-31 05:00 | NUR ---
WITH OCCASIONAL TWITCHING MOVEMENTS IN THE FACE NOTED.
[2022-10-31] MEDS: PIPERACILLIN/TAZOBACTAM 2.25 GM in DEXTROSE 5% 50 ML IV SCH ×2 (05:41→13:22)
[2022-10-31] MEDS: clonazePAM 0.5 MG TAB PO SCH ×2 (06:35→13:26)
[2022-10-31] MEDS: BLOOD GLUCOSE MONITORING 1 DEV DEV FS SCH ×3 (06:36→17:16)
[2022-10-31] MEDS: INSULIN LISPRO SLIDING SCALE 100 UNITS/ML VIAL SUBQ PRN ×2 (06:36→17:19)
--- NOTE | 2022-10-31 07:25 | NUR ---
SAFETY MAINTAINED DURING THE SHIFT. CONDITION REMAIN STABLE. ENDORSED TO IRLANDA SIMON FOR CONTINUITY OF CARE.
[2022-10-31 08:00] VITALS: BP 154/70
[2022-10-31] MEDS: PANTOPRAZOLE 40 MG TABEC PO SCH (09:53)
[2022-10-31] MEDS: levETIRAcetam 1,500 MG in NACL 0.9% 100 ML IV SCH (09:53)
[2022-10-31] MEDS: INSULIN LANTUS 100 UNITS/ML 10 ML VIAL SUBQ SCH (09:54)
[2022-10-31] MEDS: THERAHONEY GEL 42.5 GM TP SCH (13:27)
[2022-10-31] MEDS: GAUZE TP SCH (13:27)
--- NOTE | 2022-10-31 15:39 | NUR ---
DISCHARGE PLANNING SW CALL JOAN AT FROM [facility] TO GET AN UPDATE ON PATIENT'S DISCHARGE TODAY. PER JOAN PATIENT'S SON WHO HAS DECIDED FRO PATIENT TO GO TO [facility] TODAY WITH HOSPICE. PER JOAN ACCEPTING DR. ERICKSON TO BED/ROOM NUMBER [id number] AND TRANSPORT SET UP WITH [facility] BETWEEN 5:00PM 6:00PM. EMERY THANKED HER FOR THE INFORMATION AND ENDORSE IT WITH PHILIPPE BLOOM. EMERY/CM WILL FOLLOW UP NEEDED.
--- NOTE | 2022-10-31 15:39 | NUR ---
VERO FROM [facility] CALLED AND SHE SAID [employer] PROFESSIONAL TIME FOR PATIENT IS BETWEEN 5- 6PM WITH [facility] TRANSPORT GOING TO [facility]. NOTIFIED IRLANDA SIMON.
--- NOTE | 2022-10-31 16:02 | NUR ---
REPORT GIVEN TO MALENA AT [facility].
--- NOTE | 2022-10-31 16:04 | NUR ---
10/31/22 RD FOLLOW UP COMPLETED PLEASE REFER TO NUTRITION ASSESSMENT UNDER CARE ACTIVITY FOR ESTIMATED NUTRITIONAL NEEDS. 1. RECOMMEND VITAL AF 1.2 AT 60 ML/HR GOAL RATE, FWF 150 ML Q6H WITH HEBER BID TOLERATED. -PROVIDES 1440 ML TOTAL VOLUME, 1908 KCAL, 113 GM PROTEIN, AND 1768 ML FREE WATER DAILY, MEETING 100% ESTIMATED NEEDS FOR KCAL AND PROTEIN; ADEQUATE. 2. MONITOR FOR GI SYMPTOMS, GASTRIC RESIDUALS AND NUTRITION-RELATED LAB VALUES 3. RD TO FOLLOW-UP IN 3-5 DAYS PATIENT IS MODERATE RISK. REVIEWED BY PIYUSH MARTINEZ RD
== END 2022-10-31 17:25 | DRG 853 ==
LOC: MED 15:15 → MTU 20:55
PROVIDERS: ADMIT Family Medicine; ATTEND Family Medicine
PROC: 0JB00ZZ Excision of Scalp Subcutaneous Tissue and Fascia, Open Approach (ICD-10-PCS; 2022-10-19)
PROC: 0JB70ZZ Excision of Back Subcutaneous Tissue and Fascia, Open Approach (ICD-10-PCS; principal; 2022-10-19 12:30)
PROC: 4A00X4Z Measurement of Central Nervous Electrical Activity, External Approach (ICD-10-PCS; 2022-10-30)
PROC: 0D9670Z Drainage of Stomach with Drainage Device, Via Natural or Artificial Opening (ICD-10-PCS; 2022-10-30)
DX: A41.9 Sepsis, unspecified organism (principal); E43 Unspecified severe protein-calorie malnutrition; N17.0 Acute kidney failure with tubular necrosis; J69.0 Pneumonitis due to inhalation of food and vomit; E11.52 Type 2 diabetes mellitus with diabetic peripheral angiopathy with gangrene; N39.0 Urinary tract infection, site not specified; Z66 Do not resuscitate; E11.65 Type 2 diabetes mellitus with hyperglycemia; Z20.822 Contact with and (suspected) exposure to COVID-19; G40.909 Epilepsy, unspecified, not intractable, without status epilepticus; S31.000A Unspecified open wound of lower back and pelvis without penetration into retroperitoneum, initial encounter; X58.XXXA Exposure to other specified factors, initial encounter; E83.42 Hypomagnesemia; E83.39 Other disorders of phosphorus metabolism; R62.7 Adult failure to thrive; R13.10 Dysphagia, unspecified; E87.6 Hypokalemia; E86.0 Dehydration; D63.8 Anemia in other chronic diseases classified elsewhere; B96.20 Unspecified Escherichia coli [E. coli] as the cause of diseases classified elsewhere; L89.159 Pressure ulcer of sacral region, unspecified stage; Z85.841 Personal history of malignant neoplasm of brain; Z79.4 Long term (current) use of insulin; Y93.89 Activity, other specified; Y92.89 Other specified places as the place of occurrence of the external cause; Y99.8 Other external cause status; Z68.29 Body mass index [BMI] 29.0-29.9, adult; Z51.5 Encounter for palliative care; S09.8XXA Other specified injuries of head, initial encounter
CPT/HCPCS: 36415; 70450; 71045; 80048; 80053; 81001; 82150; 82553; 82948; 83036; 83605; 83690; 83735; 83880; 84100; 84436; 84439; 84443; 84479; 85025; 85610; 85651; 85730; 86140; 87040; 87070; 87075; 87081; 87086; 87186; 87205; 88304; 95816; 96361; 96365; 96367; 96372; 99285; J0360; J1100; J1815; J1953; J2001; J2060; J2543; J2704; J3010; J3475; J3480; J3490; J7030; J7060; Q0092